=== PATIENT | female | born 2000 | race Caucasian/White ===

== ENCOUNTER 2018-08-04 18:29 | Emergency (ER) | payer OTHER ==
[2018-08-04] MEDS ORDERED: NA CHLORIDE 0.9% 1,000 ML ONE (19:56)
--- NOTE | 2018-08-04 21:11 | ER ---
Nurse's Notes [facility] Name: Amy Andrew Age: 17 yrs Sex: Female : 2000 Arrival Date: 08/04/2018 Time: 18:29 Bed 13 Private MD: Diagnosis: Acute upper respiratory infection, unspecified Presentation: 08/04 18:51 Presenting complaint: Patient states: Cough, congestion, chills, sore throat for 3 aj days. Also reports high blood sugar readings of >600 at home. Transition of care: patient was not received from another setting of care. Onset of symptoms was August 04, 2018. Risk Assessment: Do you want to hurt yourself or someone else? Patient reports no desire to harm self or others. Initial Sepsis Screen: Does the patient meet any 2 criteria? No. Patient's initial sepsis screen is negative. Does the patient have a suspected source of infection? No. Patient's initial sepsis screen is negative. Care prior to arrival: None. 18:51 Method Of Arrival: Ambulatory 18:51 Acuity: UMU 3 aj Triage Assessment: 18:55 General: Appears in no apparent distress. comfortable, Behavior is calm, cooperative, aj appropriate for age. Pain: Denies pain. EENT: Reports nasal congestion nasal discharge. Neuro: Level of Consciousness is awake, alert, obeys commands, Oriented to person, place, time, situation, Appropriate for age. Respiratory: Reports cough that is productive, Airway is patent Respiratory effort is even, unlabored, Respiratory pattern is regular, symmetrical. Derm: Skin is intact, is healthy with good turgor, Skin is pink, warm \\T\\ dry. normal. 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 - Social history:: Smoking status: Patient/guardian denies using tobacco. - Ebola Screening: : Patient negative for fever greater than or equal to 101.5 degrees Fahrenheit, and additional compatible Ebola Virus Disease symptoms Patient denies exposure to infectious person Patient denies travel to an Ebola-affected area in the 21 days before illness onset No symptoms or risks identified at this time. Screenin:06 Abuse screen: Denies threats or abuse. Nutritional screening: No deficits noted. tl2 Tuberculosis screening: No symptoms or risk factors identified. Fall Risk None identified. Assessment: 19:04 General: Appears in no apparent distress. uncomfortable, Behavior is calm, cooperative, tl2 appropriate for age. General: Pt reports having to change insulin pump today, BGL read "high" and pt gave herself total of 11 units today. last dose was 1 hour ago. BGL is decreasing. Pain: Complains of pain in throat. Neuro: Level of Consciousness is awake, alert, obeys commands, Oriented to person, place, time, situation. Cardiovascular: Denies chest pain. Respiratory: Airway is patent Respiratory effort is even, unlabored, Respiratory pattern is regular, symmetrical, Breath sounds are clear bilaterally. Respiratory: Reports cough that is. GI: No signs and/or symptoms were reported involving the gastrointestinal system. : No signs and/or symptoms were reported regarding the genitourinary system. EENT: Reports nasal congestion. EENT: Throat is reddened. Derm: Skin is pink, warm \\T\\ dry. 20:14 Reassessment: Patient appears in no apparent distress at this time. Patient and/or tl2 family updated on plan of care and expected duration. Pain level reassessed. Patient is alert, oriented x 3, equal unlabored respirations, skin warm/dry/pink. 22:04 Reassessment: Patient appears in no apparent distress at this time. Patient and/or tl2 family updated on plan of care and expected duration. Pain level reassessed. Patient is alert, oriented x 3, equal unlabored respirations, skin warm/dry/pink. Pt verbalized understanding of discharge instructions, need for follow up and prescription usage Patient states feeling better. Vital Signs: 18:55 BP 114 / 79; Pulse 79; Resp 20; Temp 98.1; Pulse Ox 100% on R/A; Weight 55.34 kg; aj Height 5 ft. 1 in. (154.94 cm); 19:03 BP 118 / 94; Pulse 81; Resp 18; Pulse Ox 100% on R/A; tl2 22:04 BP 116 / 83; Pulse 63; Resp 18; Pulse Ox 98% on R/A; tl2 18:55 Body Mass Index 23.05 (55.34 kg, 154.94 cm) ED Course: 18:29 Patient arrived in ED. mr 18:53 Triage completed. aj 18:55 Arm band placed on left wrist. Patient placed in an exam room. aj 19:01 Isaiah Brown PA is PHCP. jr8 19:01 Humberto Rudd MD is Attending Physician. jr8 19:03 Cecile Vergara RN is Primary Nurse. tl2 19:06 Patient has correct armband on for positive identification. Bed in low position. Call tl2 light in reach. Side rails up X 1. Adult w/ patient. 19:06 Inserted saline lock: 22 gauge in right antecubital area, using aseptic technique. tl2 Blood collected. placed by artemio Fall. 22:04 No provider procedures requiring assistance completed. IV discontinued, intact, tl2 bleeding controlled, No redness/swelling at site. Pressure dressing applied. Administered Medications: 20:11 Drug: NS 0.9% 1000 ml Route: IV; Rate: 1000 ml; Site: right antecubital; tl2 22:07 Follow up: IV Status: Completed infusion; IV Intake: 1000ml tl2 21:52 Drug: Decadron - Dexamethasone 10 mg Route: IVP; Site: right antecubital; tl2 22:07 Follow up: Response: No adverse reaction; Medication administered at discharge. tl2 Point of Care Testing: Blood Glucose: 19:03 Blood Glucose: 405 mg/dL; tl2 21:09 Blood Glucose: 253 mg/dL; tl2 Ranges: Intake: 22:07 IV: 1000ml; Total: 1000ml. tl2 Outcome: 21:10 Discharge ordered by . jr8 22:04 Discharged to home ambulatory, with family. tl2 22:04 Condition: stable 22:04 Discharge instructions given to patient, family, Instructed on discharge instructions, follow up and referral plans. medication usage, Demonstrated understanding of instructions, follow-up care, medications, Prescriptions given X 1. 22:07 Patient left the ED. tl2 Signatures: Jessica Bone RN RN aj SamDayana mr Isaiah Brown PA PA 8 Vergara, Cecile, RN RN tl2
--- NOTE | 2018-08-04 21:11 | EDPHYS ---
Physician Documentation [facility] Name: Amy Andrew Age: 17 yrs Sex: Female : 2000 Arrival Date: 08/04/2018 Time: 18:29 Bed 13 Private MD: ED Physician Humberto Rudd HPI: 08/04 21:06 This 17 yrs old Female presents to ER via Ambulatory with complaints of jr8 Cough, Congestion, Sore Throat. 21:06 The patient or guardian reports cough, that is intermittent, described as mild, with no jr8 sputum. Onset: The symptoms/episode began/occurred gradually, 2 day(s) ago. Severity of symptoms: At their worst the symptoms were moderate, in the emergency department the symptoms are unchanged. Modifying factors: The symptoms are alleviated by nothing, the symptoms are aggravated by nothing. Associated signs and symptoms: Pertinent positives: sore throat. The patient has not experienced similar symptoms in the past. The patient has not recently seen a physician. 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 - Social history:: Smoking status: Patient/guardian denies using tobacco. - Ebola Screening: : Patient negative for fever greater than or equal to 101.5 degrees Fahrenheit, and additional compatible Ebola Virus Disease symptoms Patient denies exposure to infectious person Patient denies travel to an Ebola-affected area in the 21 days before illness onset No symptoms or risks identified at this time. ROS: 21:06 Eyes: Negative for injury, pain, redness, and discharge, Neck: Negative for injury, jr8 pain, and swelling, Cardiovascular: Negative for chest pain, palpitations, and edema, Abdomen/GI: Negative for abdominal pain, nausea, vomiting, diarrhea, and constipation, Back: Negative for injury and pain, MS/Extremity: Negative for injury and deformity, Skin: Negative for injury, rash, and discoloration, Neuro: Negative for headache, weakness, numbness, tingling, and seizure. 21:06 ENT: Positive for rhinorrhea, sinus congestion, sore throat. 21:06 Respiratory: Positive for cough, Negative for dyspnea on exertion, shortness of breath, sputum production, wheezing. Exam: 21:06 Eyes: Pupils equal round and reactive to light, extra-ocular motions intact. Lids and jr8 lashes normal. Conjunctiva and sclera are non-icteric and not injected. Cornea within normal limits. Periorbital areas with no swelling, redness, or edema. ENT: Nares patent. No nasal discharge, no septal abnormalities noted. Tympanic membranes are normal and external auditory canals are clear. Oropharynx with mild redness. No swelling, or masses, exudates, or evidence of obstruction, uvula midline. Mucous membranes moist. Neck: Trachea midline, no thyromegaly or masses palpated, and no cervical lymphadenopathy. Supple, full range of motion without nuchal rigidity, or vertebral point tenderness. No Meningismus. Respiratory: Lungs have equal breath sounds bilaterally, clear to auscultation and percussion. No rales, rhonchi or wheezes noted. No increased work of breathing, no retractions or nasal flaring. Abdomen/GI: Soft, non-tender, with normal bowel sounds. No distension or tympany. No guarding or rebound. No evidence of tenderness throughout. Back: No spinal tenderness. No costovertebral tenderness. Full range of motion. Skin: Warm, dry with normal turgor. Normal color with no rashes, no lesions, and no evidence of cellulitis. MS/ Extremity: Pulses equal, no cyanosis. Neurovascular intact. Full, normal range of motion. Neuro: Awake and alert, GCS 15, oriented to person, place, time, and situation. Cranial nerves II-XII grossly intact. Motor strength 5/5 in all extremities. Sensory grossly intact. Cerebellar exam normal. Normal gait. Vital Signs: 18:55 BP 114 / 79; Pulse 79; Resp 20; Temp 98.1; Pulse Ox 100% on R/A; Weight 55.34 kg; aj Height 5 ft. 1 in. (154.94 cm); 19:03 BP 118 / 94; Pulse 81; Resp 18; Pulse Ox 100% on R/A; tl2 22:04 BP 116 / 83; Pulse 63; Resp 18; Pulse Ox 98% on R/A; tl2 18:55 Body Mass Index 23.05 (55.34 kg, 154.94 cm) aj MDM: 19:01 Patient medically screened. jr8 21:06 Data reviewed: vital signs, nurses notes, lab test result(s), and as a result, I will jr8 discharge patient. Data interpreted: Pulse oximetry: on room air is 100 %. Interpretation: normal. Counseling: I had a detailed discussion with the patient and/or guardian regarding: the historical points, exam findings, and any diagnostic results supporting the discharge/admit diagnosis, lab results, the need for outpatient follow up, a family practitioner, to return to the emergency department if symptoms worsen or persist or if there are any questions or concerns that arise at home. Response to treatment: the patient's symptoms have markedly improved after treatment, and as a result, I will discharge patient. 08/04 19:16 Order name: Urine Dipstick--Ancillary (enter results); Complete Time: 21:29 ms 08/04 19:36 Order name: Strep; Complete Time: 21:06 jr8 08/04 19:36 Order name: Influenza Screen (a \T\ B); Complete Time: 21:06 jr8 08/04 20:34 Order name: Throat Culture EDIN 08/04 19:36 Order name: Glucose Level; Complete Time: 19:43 jr8 Administered Medications: 20:11 Drug: NS 0.9% 1000 ml Route: IV; Rate: 1000 ml; Site: right antecubital; tl2 22:07 Follow up: IV Status: Completed infusion; IV Intake: 1000ml tl2 21:52 Drug: Decadron - Dexamethasone 10 mg Route: IVP; Site: right antecubital; tl2 22:07 Follow up: Response: No adverse reaction; Medication administered at discharge. tl2 Point of Care Testing: Blood Glucose: 19:03 Blood Glucose: 405 mg/dL; tl2 21:09 Blood Glucose: 253 mg/dL; tl2 Ranges: Critical Glucose Levels:Adult <50 mg/dl or >400 mg/dl <40 mg/dl or >180 mg/dl Disposition: 08/04/18 21:10 Discharged to Home. Impression: Acute upper respiratory infection, unspecified. - Condition is Stable. - Discharge Instructions: Upper Respiratory Infection, Adult. - Prescriptions for Tessalon Perles 100 mg Oral Capsule - take 1 capsule by ORAL route every 8 hours As needed; 15 capsule. - Medication Reconciliation Form, Thank You Letter, Antibiotic Education, Prescription Opioid Use form. - Follow up: Private Physician; When: 2 - 3 days; Reason: Recheck today's complaints, Continuance of care, Re-evaluation by your physician. - Problem is new. - Symptoms have improved. Addendum: 08/06/2018 20:56 Co-signature as Attending Physician, Humberto Rudd MD. r n Signatures: Dispatcher [employer] EDMS Jessica Bone, RN RN Humberto Adkins MD MD rn Roszak, Josh, PA PA jr8 Cecile Vergara RN RN tl2 Corrections: (The following items were deleted from the chart) 08/04 22:07 21:10 08/04/2018 21:10 Discharged to Home. Impression: Acute upper respiratory tl2 infection, unspecified. Condition is Stable. Forms are Medication Reconciliation Form, Thank You Letter, Antibiotic Education, Prescription Opioid Use. Follow up: Private Physician; When: 2 - 3 days; Reason: Recheck today's complaints, Continuance of care, Re-evaluation by your physician. Problem is new. Symptoms have improved. jr8
[2018-08-04 21:16] LABS: Urine Blood NEGATIVE (NEG); Urine Glucose 2+ (NEG); Urine Protein NEGATIVE (NEG); Urine Specific Gravity <1.005 (1.005-1.030)
[2018-08-04] MEDS ORDERED: DEXAMETHASONE 10 MG/ML VIAL ONE (21:21)
== END 2018-08-04 22:07 | disposition home or self-care (01) ==
LOC: ER 18:29
DX: J06.9 Acute upper respiratory infection, unspecified (principal); E03.9 Hypothyroidism, unspecified; E11.9 Type 2 diabetes mellitus without complications; Z79.4 Long term (current) use of insulin
CPT/HCPCS: 81003; 82962; 87070; 87081; 87804; 96361; 96374; 99284; J1100; J7030

== ENCOUNTER 2019-06-10 13:11 | Emergency (ER) | payer BC, OTHER ==
[2019-06-10] MEDS ORDERED: HYDROCODONE/APAP 10/325 TAB ONE (14:34)
[2019-06-10] MEDS ORDERED: HYDROCODONE/APAP 5/325 MG TAB ONE (14:40)
[2019-06-10] MEDS ORDERED: ONDANSETRON 4 MG (ODT) TAB ONE (14:47)
[2019-06-10 15:37] LABS: Urine Blood 3+ (NEG); Urine Glucose NEGATIVE (NEG); Urine Protein NEGATIVE (NEG); Urine Specific Gravity 1.015 (1.005-1.030)
--- NOTE | 2019-06-10 15:37 | ER ---
Nurse's Notes [facility] Name: Amy Andrew Age: 18 yrs Sex: Female : 2000 Arrival Date: 06/10/2019 Time: 13:17 Bed 16 Private MD: Diagnosis: Dysmenorrhea, unspecified Presentation: 06/10 13:39 Presenting complaint: Patient states: " I have bad cramps on my period but they are ph worse than they usually are." Pt reports that today is first day of cycle, c/o kayleigh lower abdominal pain and heavy period, denies N/V/D, took BC powder and tramadol w/ no relief. Transition of care: patient was not received from another setting of care. Onset of symptoms was June 10, 2019. Risk Assessment: Do you want to hurt yourself or someone else? Patient reports no desire to harm self or others. Care prior to arrival: None. 13:39 Method Of Arrival: Ambulatory ph 13:39 Acuity: UMU 3 ph 14:15 Initial Sepsis Screen: Does the patient meet any 2 criteria? No. Patient's initial rb1 sepsis screen is negative. Does the patient have a suspected source of infection? No. Patient's initial sepsis screen is negative. 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 - Social history:: Smoking status: Patient uses tobacco products, Vapes. - Ebola Screening: : Patient negative for fever greater than or equal to 101.5 degrees Fahrenheit, and additional compatible Ebola Virus Disease symptoms. Screenin:15 Abuse screen: Denies threats or abuse. Nutritional screening: No deficits noted. rb1 Tuberculosis screening: No symptoms or risk factors identified. Fall Risk None identified. Assessment: 14:15 General: Appears uncomfortable, Behavior is calm, cooperative, Denies fever. Pain: rb1 Complains of pain in abdomen Pain currently is 10 out of 10 on a pain scale. Pain began 2-3 days ago. Neuro: Level of Consciousness is awake, alert, obeys commands, Oriented to person, place, time, situation. Neuro: Reports dizziness. Cardiovascular: Capillary refill < 3 seconds is brisk in bilateral fingers. Respiratory: Airway is patent Respiratory effort is even, unlabored, Respiratory pattern is regular, symmetrical. GI: Bowel sounds present X 4 quads. Reports nausea. GI: Abd is soft X 4 quads. : No signs and/or symptoms were reported regarding the genitourinary system. Derm: Skin is pink, warm \\T\\ dry. Musculoskeletal: Range of motion: intact in all extremities. 15:09 Reassessment: Patient appears in no apparent distress at this time. No changes from rb1 previously documented assessment. 15:25 Reassessment: Patient appears in no apparent distress at this time. Patient and/or rb1 family updated on plan of care and expected duration. Pain level reassessed. Patient is alert, oriented x 3, equal unlabored respirations, skin warm/dry/pink. 16:00 Reassessment: Patient appears in no apparent distress at this time. No changes from rb1 previously documented assessment. Vital Signs: 13:28 BP 104 / 83; Pulse 72; Resp 18; Temp 98.2; Pulse Ox 100% on R/A; Weight 52.16 kg; ph Height 5 ft. 1 in. (154.94 cm); Pain 10/10; 14:25 BP 110 / 78; Pulse 58; Resp 17; Temp 98.1(O); Pulse Ox 100% on R/A; Pain 10/10; rb1 15:25 BP 99 / 74; Pulse 60; Resp 15; Temp 98.3(O); Pulse Ox 98% on R/A; Pain 5/10; rb1 13:28 Body Mass Index 21.73 (52.16 kg, 154.94 cm) ph ED Course: 13:17 Patient arrived in ED. mr 13:33 Wendy Draper FNP-C [facility]. kb 13:33 Yousuf Fournier MD is Attending Physician. kb 13:41 Triage completed. ph 13:41 Arm band placed on Patient placed in waiting room, Patient notified of wait time. ph 14:15 Patient has correct armband on for positive identification. Placed in gown. Bed in low rb1 position. Call light in reach. Side rails up X 1. Pulse ox on. NIBP on. Warm blanket given. 14:24 Jacquie Dempsey, RN is Primary Nurse. rb1 14:33 Urine collected: clean catch specimen, clear. ms 16:02 No provider procedures requiring assistance completed. Patient did not have IV access rb1 during this emergency room visit. 16:04 US Transvaginal Study (Probe) In Process Unspecified. EDMS Administered Medications: 14:45 Drug: Yuma 5 mg-325 mg 1 tabs Route: PO; rb1 15:25 Follow up: Response: No adverse reaction; Pain is decreased rb1 14:50 Not Given (Provider changed order per pt. request): Yuma 10 mg-325 mg 1 tabs PO once; rb1 RASS on ADMIN: Combtv4, Very Agttd3, Agttd2, Rstlss1, AlertClm0, Drwsy-1, Lt Sdtn-2, Mod Sdtn-3, Dp Sdtn-4, UnArsble-5 14:50 Drug: Zofran 4 mg Route: PO; rb1 15:25 Follow up: Response: No adverse reaction; Nausea is decreased rb1 Outcome: 15:35 Discharge ordered by . kb 16:02 Discharged to home ambulatory, with family. rb1 16:02 Condition: stable 16:02 Discharge instructions given to patient, Instructed on discharge instructions, follow up and referral plans. medication usage, Demonstrated understanding of instructions, follow-up care, medications, Prescriptions given X 2. 16:02 Patient left the ED. rb1 Signatures: Dispatcher [employer] EDMS Wendy Draper, ROXANE SAFETY PROFESSIONAL-Ted VargasDayana mr Sears, Dolly Angel ms, RN RN Jacquie Dempsey, RN RN rb1 Corrections: (The following items were deleted from the chart) 16:41 16:40 Patient left the ED. rb1 rb1
--- NOTE | 2019-06-10 15:37 | EDPHYS ---
Physician Documentation [facility] Name: Amy Andrew Age: 18 yrs Sex: Female : 2000 Arrival Date: 06/10/2019 Time: 13:17 Bed 16 Private MD: ED Physician Yousuf Fournier HPI: 06/10 14:58 This 18 yrs old Female presents to ER via Ambulatory with complaints of kb Abdominal Pain, Nausea. 14:58 The patient presents with abdominal pain in the lower abdomen. Onset: The kb symptoms/episode began/occurred 2 day(s) ago. The symptoms do not radiate. Associated signs and symptoms: Pertinent positives: vaginal bleeding. The symptoms are described as constant, crampy. Modifying factors: The symptoms are alleviated by nothing, the symptoms are aggravated by nothing. Severity of pain: At its worst the pain was moderate in the emergency department the pain is unchanged. The patient has experienced similar episodes in the past. The patient has not recently seen a physician. Pt reports she started getting cramps 2 days ago and started her period today. States the cramps/pain have become untolerable today. 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 - Social history:: Smoking status: Patient uses tobacco products, Vapes. - Ebola Screening: : Patient negative for fever greater than or equal to 101.5 degrees Fahrenheit, and additional compatible Ebola Virus Disease symptoms. ROS: 14:55 Constitutional: Negative for fever, chills, and weight loss, ENT: Negative for injury, kb pain, and discharge, Neck: Negative for injury, pain, and swelling, Cardiovascular: Negative for chest pain, palpitations, and edema, Respiratory: Negative for shortness of breath, cough, wheezing, and pleuritic chest pain, Back: Negative for injury and pain, MS/Extremity: Negative for injury and deformity, Skin: Negative for injury, rash, and discoloration, Neuro: Negative for headache, weakness, numbness, tingling, and seizure. 14:55 Abdomen/GI: Positive for abdominal pain, Negative for nausea, vomiting, and diarrhea, constipation, abdominal distension, anorexia. 14:55 : Positive for vaginal bleeding. Exam: 14:57 Constitutional: This is a well developed, well nourished patient who is awake, alert, kb and in no acute distress. Head/Face: Normocephalic, atraumatic. Neck: Trachea midline, no thyromegaly or masses palpated, and no cervical lymphadenopathy. Supple, full range of motion without nuchal rigidity, or vertebral point tenderness. No Meningismus. Chest/axilla: Normal chest wall appearance and motion. Nontender with no deformity. No lesions are appreciated. Cardiovascular: Regular rate and rhythm with a normal S1 and S2. No gallops, murmurs, or rubs. Normal PMI, no JVD. No pulse deficits. Respiratory: Lungs have equal breath sounds bilaterally, clear to auscultation and percussion. No rales, rhonchi or wheezes noted. No increased work of breathing, no retractions or nasal flaring. Abdomen/GI: Soft, non-tender, with normal bowel sounds. No distension or tympany. No guarding or rebound. No evidence of tenderness throughout. Skin: Warm, dry with normal turgor. Normal color with no rashes, no lesions, and no evidence of cellulitis. MS/ Extremity: Pulses equal, no cyanosis. Neurovascular intact. Full, normal range of motion. Neuro: Awake and alert, GCS 15, oriented to person, place, time, and situation. Cranial nerves II-XII grossly intact. Motor strength 5/5 in all extremities. Sensory grossly intact. Cerebellar exam normal. Normal gait. Vital Signs: 13:28 BP 104 / 83; Pulse 72; Resp 18; Temp 98.2; Pulse Ox 100% on R/A; Weight 52.16 kg; ph Height 5 ft. 1 in. (154.94 cm); Pain 10/10; 14:25 BP 110 / 78; Pulse 58; Resp 17; Temp 98.1(O); Pulse Ox 100% on R/A; Pain 10/10; rb1 15:25 BP 99 / 74; Pulse 60; Resp 15; Temp 98.3(O); Pulse Ox 98% on R/A; Pain 5/10; rb1 13:28 Body Mass Index 21.73 (52.16 kg, 154.94 cm) ph MDM: 14:14 Patient medically screened. kb 14:56 Data reviewed: vital signs, nurses notes. Data interpreted: Pulse oximetry: on room air kb is 100 %. Interpretation: normal. Counseling: I had a detailed discussion with the patient and/or guardian regarding: the historical points, exam findings, and any diagnostic results supporting the discharge/admit diagnosis, lab results, radiology results, the need for outpatient follow up, a family practitioner, to return to the emergency department if symptoms worsen or persist or if there are any questions or concerns that arise at home. 06/10 15:34 Order name: Urine Dipstick--Ancillary (enter results) 06/10 15:34 Order name: Urine --Ancillary (enter results) 06/10 14:30 Order name: US Transvaginal Study (Probe); Complete Time: 16:21 kb 06/10 15:37 Order name: Urine --Ancillary [facility] 06/10 15:37 Order name: Urine Dipstick-Ancillary [facility] 06/10 14:16 Order name: Urine Dipstick-Ancillary (obtain specimen); Complete Time: 14:33 kb Administered Medications: 14:45 Drug: Elwell 5 mg-325 mg 1 tabs Route: PO; rb1 15:25 Follow up: Response: No adverse reaction; Pain is decreased rb1 14:50 Not Given (Provider changed order per pt. request): Elwell 10 mg-325 mg 1 tabs PO once; rb1 RASS on ADMIN: Combtv4, Very Agttd3, Agttd2, Rstlss1, AlertClm0, Drwsy-1, Lt Sdtn-2, Mod Sdtn-3, Dp Sdtn-4, UnArsble-5 14:50 Drug: Zofran 4 mg Route: PO; rb1 15:25 Follow up: Response: No adverse reaction; Nausea is decreased rb1 Disposition: 16:43 Co-signature as Attending Physician, Yousuf Fournier MD I agree with the assessment and salvador plan of care. Disposition: 06/10/19 15:35 Discharged to Home. Impression: Dysmenorrhea, unspecified. - Condition is Stable. - Discharge Instructions: Dysmenorrhea, [id number]. - Prescriptions for Tylenol- Codeine #3 300-30 mg Oral Tablet - take 1 tablet by ORAL route every 6 hours As needed; 15 tablet. Zofran 4 mg Oral Tablet - take 1 tablet by ORAL route every 6 hours As needed; 20 tablet. - Medication Reconciliation Form, Thank You Letter, Antibiotic Education, Prescription Opioid Use, Work release form form. - Follow up: Emergency Department; When: As needed; Reason: Worsening of condition. Follow up: Private Physician; When: 2 - 3 days; Reason: Recheck today's complaints, Continuance of care, Re-evaluation by your physician. Signatures: Dispatcher [employer] EDMS Wendy Draper, MANAGER ADMINISTRATION-C MANAGER ADMINISTRATION-Yousuf Rodriguez MD MD cha Hall, Patricia, RN RN Jacquie Bartholomew RN RN rb1 Corrections: (The following items were deleted from the chart) 16:40 15:35 06/10/2019 15:35 Discharged to Home. Impression: Dysmenorrhea, unspecified. rb1 Condition is Stable. Forms are Medication Reconciliation Form, Thank You Letter, Antibiotic Education, Prescription Opioid Use. Follow up: Emergency Department; When: As needed; Reason: Worsening of condition. Follow up: Private Physician; When: 2 - 3 days; Reason: Recheck today's complaints, Continuance of care, Re-evaluation by your physician. kb
--- NOTE | 2019-06-10 16:12 | RAD REPORT ---
EXAM DESCRIPTION: US - Transvaginal Study Probe - 06/10/2019 4:00 pm CLINICAL HISTORY: Pelvic pain COMPARISON: None. TECHNIQUE: Endovaginal sonography was performed. FINDINGS: Endometrial stripe is 9 mm. No focal endometrial abnormality identified. Uterus is normal size measuring 7.7 x 3.0 x 3.8 cm. No myometrial mass. Free fluid is present in the cul de sac. Both ovaries are identified and normal size. Doppler evaluation shows normal blood flow within the ov maira stroma. Small follicles are seen in each ovary. No dominant solid or cystic ovarian or adnexal finding. IMPRESSION: No significant pelvis finding noted. Free fluid in the cul de sac is not outside of norm al physiologic limits for patient age.
== END 2019-06-10 16:40 | disposition home or self-care (01) ==
LOC: ER 13:11
DX: N94.6 Dysmenorrhea, unspecified (principal); E11.9 Type 2 diabetes mellitus without complications; Z96.41 Presence of insulin pump (external) (internal); Z79.4 Long term (current) use of insulin; E03.9 Hypothyroidism, unspecified; F17.290 Nicotine dependence, other tobacco product, uncomplicated
CPT/HCPCS: 76830; 81003; 81025; 99284

== ENCOUNTER 2020-05-13 06:42 | Emergency (ER) | payer BC ==
[2020-05-13 07:33] LABS: Absolute Lymphocytes (CBC) 1.6 K/uL (0.7-4.9); Basophils % 0.9 % (0-1.3); Hematocrit 40.1 % (36.0-45.0); Lymphocytes % 42.8 % (15.3-44.8); MPV 8.7 fL (7.6-11.3); RBC Red Blood Cell Count 4.62 M/uL (3.86-4.86)
[2020-05-13 07:38] LABS: Potassium 3.8 mmol/L (3.5-5.1)
[2020-05-13] MEDS ORDERED: NA CHLORIDE 0.9% 1,000 ML ONE (08:03)
[2020-05-13 08:21] LABS: Blood Morphology Comment NOT SEEN (NOT SEEN); Platelet Estimate ADEQ
[2020-05-13] MEDS ORDERED: ACETAMINOPHEN 500 MG TAB ONE (08:30)
--- NOTE | 2020-05-13 09:52 | ER ---
Nurse's Notes [facility] Name: Amy Andrew Age: 19 yrs Sex: Female : 2000 Arrival Date: 05/13/2020 Time: 06:43 Bed 6 Private MD: Diagnosis: Abnormal uterine and vaginal bleeding, unspecified Presentation: 05/13 06:52 Chief complaint: EMS states: "The pt is reporting heavy bleeding and that started today jd3 with her minstrel cycle. she reported spotting that started yesterday, but today she is reporting to be soaking through a pad an hour. the pt was initially light headed, dizzy, diaphoretic. she also reports being a type 1 diabetic, but her sugars have been good. we gave 4 mg of Zofran and started a 20 G IV to the left AC.". Coronavirus screen: Proceed with normal triage. Ebola Screen: Patient negative for fever greater than or equal to 101.5 degrees Fahrenheit, and additional compatible Ebola Virus Disease symptoms. Initial Sepsis Screen: Does the patient meet any 2 criteria? No. Patient's initial sepsis screen is negative. Does the patient have a suspected source of infection? No. Patient's initial sepsis screen is negative. Risk Assessment: Do you want to hurt yourself or someone else? Patient reports no desire to harm self or others. Onset of symptoms was May 13, 2020. 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 - Social history:: Smoking status: Patient denies any tobacco usage or history of. Screenin:41 Abuse screen: Denies threats or abuse. Denies injuries from another. Nutritional iw screening: No deficits noted. Tuberculosis screening: No symptoms or risk factors identified. Fall Risk IV access (20 points). Assessment: 07:40 General: Appears in no apparent distress. Behavior is calm, cooperative. Pain: iw Complains of pain in right lower quadrant and left lower quadrant Pain currently is 4 out of 10 on a pain scale. Neuro: Level of Consciousness is awake, alert, obeys commands, Oriented to person, place, time, situation, Moves all extremities. Full function. Cardiovascular: Patient's skin is warm and dry. Respiratory: Respiratory effort is even, unlabored, Respiratory pattern is regular, symmetrical. GI: Reports lower abdominal pain. : Reports vaginal bleeding that is heavy flow. Derm: Skin is intact, is healthy with good turgor. Musculoskeletal: Range of motion: intact in all extremities. 09:59 Reassessment: Patient appears in no apparent distress at this time. Patient and/or iw family updated on plan of care and expected duration. Pain level reassessed. Patient is alert, oriented x 3, equal unlabored respirations, skin warm/dry/pink. Patient states feeling better. Patient states symptoms have improved. Vital Signs: 06:57 BP 104 / 69; Pulse 68; Resp 17 S; Temp 98.0(O); Pulse Ox 99% on R/A; Weight 52.16 kg jd3 (R); Height 5 ft. 1 in. (154.94 cm) (R); Pain 5/10; 07:30 BP 106 / 68 RA Supine; Pulse 57; iw 07:34 BP 100 / 72 Sitting; Pulse 69; iw 07:40 BP 101 / 71 Standing; Pulse 83; iw 08:30 BP 103 / 68; Pulse 63; Resp 16; Pulse Ox 98% ; sv 09:25 BP 100 / 65; Pulse 64; Resp 16; Pulse Ox 98% ; sv 06:57 Body Mass Index 21.73 (52.16 kg, 154.94 cm) jd3 ED Course: 06:43 Patient arrived in ED. ds1 06:44 Maintain EMS IV. Dressing intact. Good blood return noted. Site clean \\T\\ dry. Gauge \\T\\ mg 2 site: 20 \\T\\ LAC. 06:53 Benji Coyne NP is PHCP. pm1 06:53 Anuel An MD is Attending Physician. pm1 06:56 Triage completed. jd3 06:58 Arm band placed on. jd3 07:07 CBC with Diff Sent. ds4 07:07 Basic Metabolic Panel Sent. ds4 07:07 Abo/rh Typing Sent. ds4 07:12 Christianne Mckeon, RN is Primary Nurse. iw 07:40 Patient has correct armband on for positive identification. iw 09:59 No provider procedures requiring assistance completed. IV discontinued, intact, iw bleeding controlled, No redness/swelling at site. Pressure dressing applied. Administered Medications: 08:21 Drug: NS 0.9% 1000 ml Route: IV; Rate: 1000 ml; Site: left antecubital; iw 08:27 Drug: Tylenol 1000 mg Route: PO; iw Outcome: 09:52 Discharge ordered by MD. pm1 10:05 Discharged to home ambulatory. iw 10:05 Condition: good 10:05 Discharge instructions given to patient, Instructed on discharge instructions, follow up and referral plans. medication usage, Demonstrated understanding of instructions, follow-up care, medications, Prescriptions given X 1. 10:06 Patient left the ED. iw Signatures: Ivone Hines, RN RN Sherine Figueroa ds1 Christianne Mckeon, RN RN iw Adal Che ds4 Benji Coyne, EULALIO MARINE DIVER pm1 Cuong Forman RN RN jd3 Corbin Kat RN RN mg2
--- NOTE | 2020-05-13 09:52 | EDPHYS ---
Physician Documentation [facility] Name: Amy Andrew Age: 19 yrs Sex: Female : 2000 Arrival Date: 05/13/2020 Time: 06:43 Bed 6 Private MD: ED Physician Anuel An HPI: 05/13 06:45 This 19 yrs old Female presents to ER via EMS with complaints of Vaginal pm1 Bleeding. 06:45 The patient presents with vaginal bleeding that is heavy. Onset: The symptoms/episode pm1 began/occurred this morning. Modifying factors:. Associated signs and symptoms: Pertinent positives: cramping, nausea, dizziness, Pertinent negatives: dysuria, fever, vomiting, Syncope. Severity of symptoms: in the emergency department the symptoms have improved. 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 Patient with history of heavy monthly menses. Usually lasts 3 days. Patient presented to the ER today because she started her menses yesterday with some spotting then she woke up this AM with vaginal bleeding in bed. She got up to clean herself and felt dizzy, nauseated and was sweating. Blood sugar was in the 200's at home. 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 - Social history:: Smoking status: Patient denies any tobacco usage or history of. ROS: 07:01 Positive for vaginal bleeding, Negative for urinary symptoms, vaginal discharge. pm1 07:01 Constitutional: Negative for fever, chills, and weight loss, Cardiovascular: Negative for chest pain, palpitations, and edema, Respiratory: Negative for shortness of breath, cough, wheezing, and pleuritic chest pain. 07:01 Back: Negative for injury and pain, MS/Extremity: Negative for injury and deformity, Skin: Negative for injury, rash, and discoloration. 07:01 Abdomen/GI: Positive for abdominal cramps, of the suprapubic area, Negative for nausea, vomiting, and diarrhea. 07:01 Neuro: Positive for headache, Negative for numbness, tingling, weakness. Exam: 07:01 Constitutional: This is a well developed, well nourished patient who is awake, alert, pm1 and in no acute distress. Head/Face: Normocephalic, atraumatic. 07:01 Back: No spinal tenderness. No costovertebral tenderness. Full range of motion. Skin: Warm, dry with normal turgor. Normal color with no rashes, no lesions, and no evidence of cellulitis. MS/ Extremity: Pulses equal, no cyanosis. Neurovascular intact. Full, normal range of motion. 07:01 Cardiovascular: Exam negative for acute changes, Rate: normal, Rhythm: regular, Pulses: no pulse deficits are appreciated. 07:01 Respiratory: Exam negative for acute changes, respiratory distress, shortness of breath. 07:01 Abdomen/GI: Inspection: abdomen appears normal, Palpation: abdomen is soft and non-tender, in all quadrants. 07:01 Neuro: Exam negative for acute changes, Orientation: is normal, Mentation: is normal, Motor: is normal, moves all fours. Vital Signs: 06:57 BP 104 / 69; Pulse 68; Resp 17 S; Temp 98.0(O); Pulse Ox 99% on R/A; Weight 52.16 kg jd3 (R); Height 5 ft. 1 in. (154.94 cm) (R); Pain 5/10; 07:30 BP 106 / 68 RA Supine; Pulse 57; iw 07:34 BP 100 / 72 Sitting; Pulse 69; iw 07:40 BP 101 / 71 Standing; Pulse 83; iw 08:30 BP 103 / 68; Pulse 63; Resp 16; Pulse Ox 98% ; sv 09:25 BP 100 / 65; Pulse 64; Resp 16; Pulse Ox 98% ; sv 06:57 Body Mass Index 21.73 (52.16 kg, 154.94 cm) jd3 MDM: 06:53 Patient medically screened. pm1 08:28 Counseling: I had a detailed discussion with the patient and/or guardian regarding: the pm1 historical points, exam findings, and any diagnostic results supporting the discharge/admit diagnosis, lab results, pending urine sample. 09:28 Data reviewed: vital signs. Data interpreted: Pulse oximetry: on room air is 98 %. pm1 Interpretation: normal. 05/13 06:44 Order name: Abo/rh Typing; Complete Time: 07:52 mg2 05/13 06:44 Order name: Basic Metabolic Panel; Complete Time: 07:52 mg2 05/13 06:44 Order name: CBC with Diff; Complete Time: 08:28 mg2 05/13 08:21 Order name: Manual Differential; Complete Time: 08:28 EDNJ 05/13 09:54 Order name: Urine Dipstick--Ancillary (enter results) pr 05/13 09:54 Order name: Urine --Ancillary (enter results) pr 05/13 06:44 Order name: IV Saline Lock; Complete Time: 06:45 mg2 05/13 06:44 Order name: Labs collected and sent; Complete Time: 06:45 mg2 05/13 06:44 Order name: NPO; Complete Time: 06:45 mg2 05/13 06:44 Order name: Urine Dipstick-Ancillary (obtain specimen); Complete Time: 09:51 [facility] 05/13 06:53 Order name: Urine Test (obtain specimen); Complete Time: 07:42 pm1 05/13 06:58 Order name: Orthostatic Blood Pressure; Complete Time: 07:42 pm1 Administered Medications: 08:21 Drug: NS 0.9% 1000 ml Route: IV; Rate: 1000 ml; Site: left antecubital; 08:27 Drug: Tylenol 1000 mg Route: PO; Disposition: 05/13/20 09:52 Discharged to Home. Impression: Abnormal uterine and vaginal bleeding, unspecified. - Condition is Stable. - Discharge Instructions: Abnormal Uterine Bleeding. - Medication Reconciliation Form, Thank You Letter, Antibiotic Education, Prescription Opioid Use form. - Follow up: Emergency Department; When: As needed; Reason: Worsening of condition. Follow up: Private Physician; When: 2 - 3 days; Reason: Recheck today's complaints, Continuance of care, Re-evaluation by your physician. - Problem is new. - Symptoms have improved. Signatures: Dispatcher [employer] Christianne Holder RN RN iw Marinas, Patrick, NP STREET PHOTOGRAPHER pm1 Cuong Forman RN RN jd3 Gardose, Michele, RN RN mg2 Corrections: (The following items were deleted from the chart) 10:06 09:52 05/13/2020 09:52 Discharged to Home. Impression: Abnormal uterine and vaginal iw bleeding, unspecified. Condition is Stable. Discharge Instructions: Abnormal Uterine Bleeding. Forms are Medication Reconciliation Form, Thank You Letter, Antibiotic Education, Prescription Opioid Use. Follow up: Emergency Department; When: As needed; Reason: Worsening of condition. Follow up: Private Physician; When: 2 - 3 days; Reason: Recheck today's complaints, Continuance of care, Re-evaluation by your physician. Problem is new. Symptoms have improved. pm1 16:49 07:01 Positive for vaginal bleeding, vaginal discharge, Negative for urinary pm1 symptoms, pm1
[2020-05-13 10:13] VITALS: TEMP 98
[2020-05-13 10:17] VITALS: O2SAT 98
[2020-05-13 10:19] VITALS: BP 100/65
[2020-05-13 10:50] LABS: Urine Blood 2+ (NEG); Urine Glucose NEGATIVE (NEG); Urine Protein NEGATIVE (NEG); Urine pH 6.5 (5.0-7.0)
== END 2020-05-13 10:06 | disposition home or self-care (01) ==
LOC: ER 06:42
DX: N93.9 Abnormal uterine and vaginal bleeding, unspecified (principal); E11.9 Type 2 diabetes mellitus without complications; E03.9 Hypothyroidism, unspecified; Z96.41 Presence of insulin pump (external) (internal); Z79.4 Long term (current) use of insulin
CPT/HCPCS: 85025; 80048; 36415; 86900; 81025; 86901; 81003; J7030; 99284

== ENCOUNTER 2022-03-25 22:46 | Emergency (ER) | payer BC ==
--- OUTSIDE RECORDS SUMMARY | 2022-03-25 22:50 | XMS REPORT | Continuity of Care Document ---
:2000 Author Organization [facility] t Address [address] [place] [address] Care Team Providers Name Role Phone Pcp Primary Care Physician Unavailable MARCEL BAHENA Attending Clinician Unavailable Josef CROSS, Marcel Attending Clinician EMILIANA Attending Clinician Unavailable Emiliana CROSS Attending Clinician Alan SUERO Attending Clinician Unavailable Therapy, Covid Infusion Attending Clinician Unavailable Pio CROSS, Alan Attending Clinician Doctor Unassigned, Name Attending Clinician Unavailable Naveen CROSS Attending Clinician Payers Payer Name Policy Type Policy Number Effective Date Expiration Date S ource PPO/EPO - BCBS [id number] BCBS PPO POS EPO [id number] 2018 00:00:00 CHOICE Problems Condition Condition Condition Status Onset Resolution Last Treating Co mments Source Name Details Category Date Date Treatment Clinician Date Tension Tension Disease Active Univers type type 07-10 ity of headache headache 00:00: [place] 00 [facility] Branch Allergic Allergic Disease Active Unive rs rhinitis rhinitis 07-10 ity of 00:00: [place] 00 [facility] Branch Type 1 Type 1 Disease Active Overview: Univer s diabetes diabetes 07-04 Formattin ity of mellitus mellitus 00:00: g of this Nader as 00 note Medical might be Branch different from the original. Diagnosed at age 1.5 years. Has insulin pump. Followed by [facility] Endocrino logy - Dr. Suero Functional Functional Disease Active Overview : Univers constipati constipati 07-04 Formattin ity of on on 00:00: g of this note Medical might be Branch different from the original. Chronic history in past, takes Metamucil regularly to control Hypothyroi Hypothyroi Disease Active Overview : Univers dism dism 07-04 Formattin ity of (acquired) (acquired) 00:00: g of this note Medical might be Branch different from the original. Takes Levothyro teresita, followed by Dr. Suero [facility] Endocrine Dysmenorrh Dysmenorrh Disease Active 2011-10 U gissel lynch ea 10-23 ity of 00:00: [place] [facility] Lymphocyti Lymphocyti Disease Active U gissel grubbs 06-28 [place]y of thyroid[place] thyroiditi [place] No known No known Disease [facility] active [facility] problems problems of Medicin e Allergies, Adverse Reactions, Alerts Allergy Allergy Status Severity Reaction(s) Onset Inactive Treating Comm ents Source Name Type Date Date Clinician GRASS DRUG Active Rash Univers POLLEN INGREDI 07-10 ity of 00:00: [place] [facility] SULFACET DRUG Active Dizziness Unive rs AMIDE INGREDI 07-10 ity of SODIUM 00:00: Medical Branch Sulfacet Propensi Active Nausea Univer s amide ty to and/or 07-10 ity of Sodium adverse Vomiting 00:00: [place] reaction Medical s Branch TRAMADOL DRUG Active Dizziness Unive rs INGREDI 07-10 ity of 00:00: [place] [facility] Tramadol Propensi Active Nausea Univer s ty to and/or 07-10 ity of adverse Vomiting 00:00: [place] reaction Medical s Branch Grass Propensi Active Rash Univers Pollen ty to 07-10 ity of adverse 00:00: [place] reaction Medical s Branch Iodine Propensi Active Rash Other Univers ty to 07-04 reaction( ity of adverse 00:00: s): [place] reaction 00 Other: Medical s See Branch Comments eadache with iodine contrast for MRIHad a reaction when given for imaging study in the past. IODINE DRUG Active Rash Univers INGREDI 07-04 ity of 00:00: [place] [facility] NO KNOWN Allergy Active [facility] Social History Social Habit Start Date Stop Date Quantity Comments Source History SDOH [facility] Alcohol Std Drinks Medica l Center History SDOH [facility] Alcohol Binge Medical Roxi ter History SDOH [facility] Alcohol Comment Medical C enter Exposure to Not sure [facility] SARS-CoV-2 (event) Medica l Center Tobacco use and 2021-11-17 2021-11-[address] [facility] exposure 00:00:00 00:00:00 [facility] Alcohol intake 2021-11-17 2021-11-[address] [facility] 00:00:00 00:00:00 non-drinker Medical Cente r (finding) History SDOH 2021-11-17 2021-11-[address] [facility] Alcohol Frequency 00:00:00 00:00:00 [facility] Sex Assigned At [address] [facility] 00:00:00 00:00:00 [facility] Smoking Status Start Date Stop Date Source Never smoked tobacco [facility] ege of Medicine Medications Ordered Filled Start Stop Current Ordering Indication Dosage Frequency Signature Comments Components Source Medication Medication Date Date Medication? Clinician (SIG) Name Name spironolact Yes 50mg Take 50 mg [facility] one 4-11 by mouth [facility] (ALDACTONE) 11:00: daily. of 50 MG 48 Medicin tablet e spironolact Yes 50mg Take 50 mg [facility] one 2-28 by mouth [facility] (ALDACTONE) 11:30: daily. of 50 MG 30 Medicin tablet e levothyroxi Yes 125ug Take 1 [place] don[place] ne 2-22 Tablet by [facility] (SYNTHROID) 00:00: mouth of 125 MCG 00 daily. Medicin tablet e Continuous Yes Change [facility] Gluc 2-22 every 2 Colleg e Sensor 00:00: weeks of (FREESTYLE 00 Medicin NOAH 2 e SENSOR) MISC levothyroxi Yes 125ug Take 1 [place] donan ne 2-22 Tablet by [facility] (SYNTHROID) 00:00: mouth of 125 MCG 00 daily. Medicin tablet e Continuous Yes Change [facility] Blood Gluc 2-22 every 2 Colleg e Sensor 00:00: weeks of (FREESTYLE 00 Medicin NOAH 2 e SENSOR) [facility] insulin Yes Inject [facility] aspart -31 [facility] U-100 10:49: usly 3 Medical (NovoLOG) 18 (three) Center 100 unit/mL times injection daily before meals. levothyroxi Yes 137ug Take [address] ne 1-31 mcg by [facility] (SYNTHROID, 10:49: mouth Medic al LEVOTHROID) 18 Every Center 137 MCG morning on tablet an empty stomach. spironolact Yes 50mg Take 50 mg [facility] one 11-17 by mouth [facility] (ALDACTONE) 09:20: daily. of 50 MG 52 Medicin tablet e doxycycline 2021- No 50mg Take 50 mg [facility] (VIBRAMYCIN 11-17 by mouth Col lege ) 50 MG 09:20: 00:00 daily. of capsule 33 :00 Medicin e ondansetron 2021- No 4mg Take [address] (ZOFRAN) 4 11-17 0207 tablet (4 Jenifer es MG tablet 00:00: 23:59 mg total) Me dical 00 :00 by mouth Center every 6 (six) hours for 7 days. levothyroxi Yes TAKE 1 [facility] ne 1-21 TABLET BY [facility] (SYNTHROID) 00:00: MOUTH of 137 MCG 00 EVERY DAY Medicin tablet e doxycycline 2020-10 Yes 50mg Take 50 mg [facility] (VIBRAMYCIN 10-25 by mouth Milagro ege ) 50 MG 11:13: daily. of capsule 34 Medicin e insulin 2020-10 Yes [id number] Inject [facility] aspart 10-25 [facility] (NOVOLOG) 00:00: usly a MAX of 100 UNIT/ML 00 dose of 45 Me dicin injection units a e day via insulin pump. 90 day supply Insulin 2020-10 Yes [id number] Inject [facility] Glargine 10-25 [facility] (BASAGLAR 00:00: usly a MAX of KWIKPEN) 00 dose of 16 Medic in 100 UNIT/ML units a e SOPN day in case of pump failure. Insulin Pen 2020-10 Yes [id number] Use with [facility] Needle (BD 10-25 insulin Colleg e PEN NEEDLE 00:00: pen at of [place] U/F) 00 least five Medi jorge 32G X 4 MM times a e MISC day in case of pump failure. Acetone, 2020-10 Yes [id number] check [facility] Urine, Test 10-25 urine College STRP 00:00: ketones if of 00 BG >300 Medicin mg/dL or e during illness BAQSIMI TWO 2020-10 Yes [id number] 1{each} 1 Each by [facility] PACK 3 10-25 Nasal College MG/DOSE 00:00: route as of needed Medicin (for e severe hypoglycem ia). Glucose 2020-10 Yes [id number] Check Ba or Blood 10-25 blood [facility] Strips 00:00: sugars 6 of (CONTOUR 00 times a Medicin NEXT TEST) day. 90 e day supply. Dx Code: E 10.65 ONE TOUCH 2020-10 Yes [id number] Check BG 6 [facility] ULTRASOFT 10-25 times a [facility] LANCETS 00:00: day. 90 of MISC 00 day Medicin supply. e insulin 2020-10 Yes [id number] Inject [facility] aspart 10-25 [facility] (NOVOLOG) 00:00: usly a MAX of 100 UNIT/ML 00 dose of 45 Me dicin injection units a e day via insulin pump. 90 day supply Insulin 2020-10 Yes [id number] Inject [facility] Glargine 10-25 [facility] ge (BASAGLAR 00:00: usly a MAX of KWIKPEN) 00 dose of 16 Medic in 100 UNIT/ML units a e SOPN day in case of pump failure. Insulin Pen 2020-10 Yes [id number] Use with [facility] Needle (BD 10-25 insulin Colleg e PEN NEEDLE 00:00: pen at of [place] U/F) 00 least five Medi jorge 32G X 4 MM times a e MISC day in case of pump failure. Acetone, 2020-10 Yes [id number] check [facility] Urine, Test 10-25 urine [facility] STRP 00:00: ketones if of 00 BG >300 Medicin mg/dL or e during illness BAQSIMI TWO 2020-10 Yes [id number] 1{each} 1 Each by [facility] PACK 3 10-25 Nasal College MG/DOSE 00:00: route as of POW needed Medicin (for e severe hypoglycem ia). Glucose 2020-10 Yes [id number] Check [facility] Blood 10-25 blood College Strips 00:00: sugars 6 of (CONTOUR 00 times a Medicin NEXT TEST) day. 90 e day supply. Dx Code: E 1065 ONE TOUCH 2020-10 Yes [id number] Check BG 6 [facility] ULTRASOFT 10-25 91 times a [facility] LANCETS 00:00: day. of MISC day Medicin supply. e insulin 2020-10 Yes [id number] [facility]: usly a MAX of 100 UNIT/ML 00 dose of 45 Me dicin injection units a e day via insulin pump. 90 day supply Insulin 2020-10 Yes [id number] Inject [facility]argine 10-[facility] ge (BASAGLAR 00:00: usly a MAX of KWIKPEN) 00 dose of 16 Medic in 100 UNIT/ML units a e SOPN day in case of pump failure. Insulin Pen 2020-10 Yes [id number] Use with [facility] Needle (BD 10-25 insulin Colleg e PEN NEEDLE 00:00: pen at of [place] U/F) 00 least five Medi jorge 32G X 4 MM times a e MISC day in case of pump failure. Acetone, 2020-10 Yes [id number] check [facility] Urine, Test 10-25 urine [facility] STRP 00:00: ketones if of 00 BG >300 Medicin mg/dL or e during illness BAQSIMI TWO 2020-10 Yes [id number] 1{each} 1 Each by [facility] PACK 3 10-25 Nasal College MG/DOSE 00:00: route as of POW 00 needed Medicin (for e severe hypoglycem ia). Glucose 2020-10 Yes [id number] Check [facility] Blood 10-25 blood College Strips 00:00: sugars 6 of (CONTOUR 00 times a Medicin NEXT TEST) day. 90 e day supply. Dx Code: E 1065 ONE TOUCH 2020-10 Yes [id number] Check BG 6 [facility] ULTRASOFT 1-08 9101 times a College LANCETS 00:00: day. 90 of [facility] 00 day Medicin supply. e casirivimab 2020- No [id number] 1200mg Univers -imdevimab 05-22 ity of (REGEN-COV 14:30: 14:34 [place] (EUA)) 00 :00 Medical 1,200 mg in Branch NaCl 0.9% (NS) 60 mL IV infusion casirivimab 2020- No [id number] 1200mg 1,200 mg, Univers -imdevimab 05-22 IV ity of (REGEN-COV 14:30: 14:34 In[place], [place] (EUA)) 00 :00 ONCE, [facility] 1,200 mg in 05/22/21 at [facility] NaCl 0.9% 0930, For (NS) 60 mL 1 IV infusion dose
Ad core measures abstractor as an IV infusion via pump or gravity over at least 60 minutes through an intravenou s line containing a sterile, in-line or add-on 0.2-micron polyethers ulfone (PES) filter.&nb sp;Stable 36 hours refrigerat ed; 4 hours at room temperatur e. &nbs p;
levothyroxi Yes Take one [facility] ne 7-23 tablet by [facility] (SYNTHROID) 00:00: mouth of 137 MCG 00 daily. Medicin tablet e THYROID OR 2019-10 Yes 175ug Take 175 [facility] 2-01 mcg by [facility] 20:09: mouth of 52 daily. Medicin e doxycycline 2019-10 Yes 50mg Take 50 mg [facility] (VIBRAMYCIN 2-01 by mouth Milagro ege ) 50 MG 20:09: daily. of capsule 52 Medicin e THYROID OR 2019-10 Yes 175ug Take 175 [facility] 2-01 mcg by [facility] 20:09: mouth of 52 daily. Medicin e doxycycline 2019-10 Yes 50mg Take 50 mg [facility] (VIBRAMYCIN 2-01 by mouth Milagro ege ) 50 MG 20:09: daily. of capsule 52 Medicin e THYROID OR 2019-10 Yes 175ug Take 175 [facility] 2-01 mcg by College 14:09: mouth of 52 daily. Medicin e THYROID OR 2019-10 Yes 175ug Take 175 [facility] 2-01 mcg by College 14:09: mouth of 52 daily. Medicin e THYROID OR 2019-10 Yes 175ug Take 175 [facility] 2-01 mcg by College 14:09: mouth of 52 daily. Medicin e THYROID OR 2019-10 Yes 175ug Take 175 [facility] 2-01 mcg by College 14:09: mouth of 52 daily. Medicin e duloxetine 2019-10 Yes 40mg Take 40 mg [facility] (CYMBALTA) 1-24 by mouth Colle ge 20 MG 00:00: daily. of capsule 00 Medicin e duloxetine 2019-10 Yes 40mg Take 40 mg [facility] (CYMBALTA) 1-24 by mouth Colle ge 20 MG 00:00: daily. of capsule 00 Medicin e duloxetine 2019-10 Yes 40mg Take 40 mg [facility] (CYMBALTA) 1-24 by mouth Colle ge 20 MG 00:00: daily. of capsule 00 Medicin e duloxetine 2019-10 Yes 20mg Take 20 mg [facility] (CYMBALTA) 1-24 by mouth Colle ge 20 MG 00:00: daily. of capsule 00 Medicin e duloxetine 2019-10 Yes 20mg Take 20 mg [facility] (CYMBALTA) 1-24 by mouth Colle ge 20 MG 00:00: daily. of capsule 00 Medicin e duloxetine 2019-10 Yes 20mg Take 20 mg [facility] (CYMBALTA) 1-24 by mouth Colle ge 20 MG 00:00: daily. of capsule 00 Medicin e Glucose 2020-0 Yes [id number] Check [facility] Blood 5-20 9101 blood College Strips 00:00: sugars 10 of (CONTOUR 00 times a Medicin NEXT TEST) day Dx e Code: E 10.65 Glucose 2020-0 Yes [id number] Check [facility] Blood 5-20 9101 blood College Strips 00:00: sugars 10 of (CONTOUR 00 times a Medicin NEXT TEST) day Dx e Code: E 10.65 Glucose 2020-0 Yes [id number] Check [facility] Blood 5-20 9101 blood College Strips 00:00: sugars 10 of (CONTOUR 00 times a Medicin NEXT TEST) day Dx e Code: E 10.65 Insulin 2020-0 Yes upt to 35 [facility] Glargine 3-19 units [facility] 100 UNIT/ML 00:00: subcut a of SOPN 00 day in the Medicin event of e insulin pump failure Insulin Yes upt to 35 [facility] Glargine 3-19 units [facility] 100 UNIT/ML 00:00: subcut a of SOPN day in the Medicin event of e insulin pump failure Insulin Yes upt to 35 [facility] Glargine 3-19 units [facility] 100 UNIT/ML 00:00: subcut a of SOPN day in the Medicin event of e insulin pump failure THYROID OR Yes 175ug Take 175 [facility] 1-31 mcg by College 22:06: mouth of 46 daily. Medicin e doxycycline Yes 50mg Take 50 mg [facility] (VIBRAMYCIN 1-31 by mouth Milagro ege ) 50 MG 22:06: daily. of capsule 46 Medicin e Glucagon, Yes Inject IM [place] donna rDNA, 6-26 1 mg for College (GLUCAGON 00:00: severe of EMERGENCY) 00 hypoglycem Med icin 1 MG KIT ia (BG e <70) PRN. Glucagon, Yes Inject IM [place] donna rDNA, 6-26 1 mg for College (GLUCAGON 00:00: severe of EMERGENCY) 00 hypoglycem Med icin 1 MG KIT ia (BG e <70) PRN. Glucagon, Yes Inject IM [place] donna rDNA, 6-26 1 mg for College (GLUCAGON 00:00: severe of EMERGENCY) 00 hypoglycem Med icin 1 MG KIT ia (BG e <70) PRN. Glucagon, Yes Inject IM [place] donna rDNA, 1 MG 6-26 1 mg for Colle ge KIT 00:00: severe of 00 hypoglycem Medicin ia (BG e <70) PRN. Glucose Yes Testing up [facility] or Blood 5- to 10 College Strips 00:00: times per of (CONTOUR day for Medicin NEXT TEST) blood e glucose control. 90 day supply FLUoxetine Yes TAKE 1 Unive rs 20 mg 2-22 TABLET BY ity of tablet 00:00: MOUTH [place] 00 EVERY Medical MORNING Branch ONCE A DAY FLUoxetine Yes TAKE 1 Unive rs 20 mg 2-22 TABLET BY ity of tablet 00:00: MOUTH [place] 00 EVERY Medical MORNING Branch ONCE A DAY lansoprazol Yes 30mg Take 30 mg Univers e 1-27 by mouth ity of (PREVACID) 20:11: daily. [place] 30 mg 23 Medical capsule Branch lansoprazol 0 Yes 30mg Take 30 mg Univers e 1-27 by mouth ity of (PREVACID) 20:11: daily. [place] 30 mg 23 Medical capsule Branch benzoyl Yes [id number] Use Univer s peroxide 10 1-04 topical ity o f % external 00:00: daily with [place] wash 00 shower to Medical affected Branch area. benzoyl Yes [id number] Use Univer s peroxide 10 1-04 topical ity o f % external 00:00: daily with [place] wash 00 shower to Medical affected Branch area. ONE TOUCH 2015-10 Yes 1{each} 1 Each. [facility] LANCETS 0-18 [facility] 00:00: of 00 Medicin e ONE TOUCH 2015-10 Yes 1{each} 1 Each. [facility] LANCETS 0-18 [facility] 00:00: of 00 Medicin e ONE TOUCH 2015-10 Yes 1{each} 1 Each. [facility] LANCETS 0-18 [facility] 00:00: of 00 Medicin e ONE TOUCH 2015-10 Yes 1{each} 1 Each. [facility] LANCETS 0-18 [facility] 00:00: of 00 Medicin e levothyroxi 2015- Yes [id number] 175ug Take 1 Univers ne 9-21 tablet by ity of (SYNTHROID) 00:00: mouth [place] 175 mcg 00 every Medical tablet morning. Branch ibuprofen Yes [id number] 800mg Take 1 Univers (MOTRIN) 9-21 tablet by ity of 800 mg 00:00: mouth [place] tablet 00 every 6 Medical (six) Branch hours as needed for Pain (scale 4-6). levothyroxi 2015- Yes [id number] 175ug Take 1 Univers ne 9-21 tablet by ity of (SYNTHROID) 00:00: mouth [place] 175 mcg 00 every Medical tablet morning. Branch ibuprofen Yes [id number] 800mg Take 1 Univers (MOTRIN) 9-21 tablet by ity of 800 mg 00:00: mouth [place] tablet 00 every 6 Medical (six) Branch hours as needed for Pain (scale 4-6). Polyethylen Yes Take 1 cap Univers e Glycol 9-01 full daily ity o f 3350 (PEG 00:00: with 8 oz Nader as 3350-GRX) 00 of fluid. Medic al Powd May Branch titrate as discussed in the office. Polyethylen Yes Take 1 cap Univers e Glycol 9-01 full daily ity o f 3350 (PEG 00:00: with 8 oz [place] as 3350-GRX) 00 of fluid. Medic al Powd May Branch titrate as discussed in the office. MINASTRIN Yes 1{tbl} Take 1 Tab Univers 24 FE 1 3-30 by mouth ity of mg-20 00:00: daily. [place] mcg(24) /75 00 Medical mg (4) per Branch tablet MINASTRIN Yes 1{tbl} Take 1 Tab Univers 24 FE 1 3-30 by mouth ity of mg-20 00:00: daily. [place] mcg(24) /75 00 Medical mg (4) per Branch tablet insulin Yes USE VIA [facility] aspart 2-22 INSULIN [facility] (NOVOLOG) 00:00: PUMP UP TO of 100 UNIT/ML 00 100 UNITS Med icin injection PER DAY e insulin Yes USE VIA [facility] aspart 2-22 INSULIN [facility] (NOVOLOG) 00:00: PUMP UP TO of 100 UNIT/ML 00 100 UNITS Med icin injection PER DAY e insulin Yes USE VIA [facility] aspart 222 INSULIN [facility] (NOVOLOG) 00:00: PUMP UP TO of 100 UNIT/ML 00 100 UNITS Med icin injection PER DAY e insulin Yes USE VIA [facility] aspart 2-22 INSULIN [facility] (NOVOLOG) 00:00: PUMP UP TO of 100 UNIT/ML 00 100 UNITS Med icin injection PER DAY e NOVOLOG 100 Yes By insulin Univers unit/mL 2-22 pump ity of solution 00:00: [place] [facility] NOVOLOG 100 Yes By insulin Univers unit/mL 2-22 pump ity of solution 00:00: [place] [address] Medical Branch Immunizations Ordered Immunization Filled Date Status Comments Sour ce Name Immunization Name Influenza Quad-PF 2021-05-18 Completed [facility] 00:00:00 of Medicine Influenza Quad-PF 2021-05-18 Completed [facility] 00:00:00 of Medicine Influenza Quad-PF 2021-05-18 Completed [facility] 00:00:00 of Medicine Influenza Quad-PF 2021-05-18 Completed [facility] 00:00:00 of Medicine HPV 2015-02-27 Completed University of 00:00:00 [facility] Meningococcal 2015-02-27 Completed University of Polysaccharide (groups 00:00:00 [place] [facility] A, C, Y and W-135) Branch conjugate vaccine (MCV4P) HPV 2015-02-27 Completed University of 00:00:00 [facility] Meningococcal 2015-02-27 Completed University of Polysaccharide (groups 00:00:00 [place] [facility] A, C, Y and W-135) Branch conjugate vaccine (MCV4P) Meningococcal 2013-06-08 Completed University of Oligosaccharide 00:00:00 [place] Med ical (groups A, C, Y and Branc h W-135) conjugate vaccine (MCV4O) Meningococcal 2013-06-08 Completed University of Oligosaccharide 00:00:00 [place] Med ical (groups A, C, Y and Branc h W-135) conjugate vaccine (MCV4O) TDAP 2012-06-15 Completed University of 00:00:00 [facility] Meningococcal 2012-06-15 Completed University of Polysaccharide (groups 00:00:00 [place] [facility] A, C, Y and W-135) Branch conjugate vaccine (MCV4P) TDAP 2012-06-15 Completed University of 00:00:00 [facility] Meningococcal 2012-06-15 Completed University of Polysaccharide (groups 00:00:00 [place] [facility] A, C, Y and W-135) Branch conjugate vaccine (MCV4P) MMR 2007-02-08 Completed University of 00:00:00 [facility] Varicella 2007-02-08 Completed University of (varivax)(chicken pox) 00:00:00 [facility] DTAP 2007-02-08 Completed University of 00:00:00 [facility] IPV 2007-02-08 Completed University of 00:00:00 [facility] MMR 2007-02-08 Completed University of 00:00:00 [facility] Varicella 2007-02-08 Completed University of (varivax)(chicken pox) 00:00:00 [facility] DTAP 2007-02-08 Completed University of 00:00:00 [facility] IPV 2007-02-08 Completed University of 00:00:00 [facility] Varicella 2006-06-25 Completed University of (varivax)(chicken pox) 00:00:00 [facility] Branch Varicella 2006-06-25 Completed University of (varivax)(chicken pox) 00:00:00 [facility] Branch DTAP 2000-05-20 Completed University of 00:00:00 [facility] HIB 4 Dose Schedule 2000-05-20 Completed Unive rsity of 00:00:00 [facility] MMR 2000-05-20 Completed University of 00:00:00 [facility] DTAP 2000-05-20 Completed University of 00:00:00 [facility] HIB 4 Dose Schedule 2000-05-20 Completed Unive rsity of 00:00:00 [facility] MMR 2000-05-20 Completed University of 00:00:00 [facility] DTAP 1999-12-18 Completed University of 00:00:00 [facility] Hep B, Adol or Pedi 1999-12-18 Completed Unive rsity of Dosage 00:00:00 [facility] HIB 4 Dose Schedule 1999-12-18 Completed Unive rsity of 00:00:00 [facility] IPV 1999-12-18 Completed University of 00:00:00 [facility] Branch DTAP 1999-12-18 Completed University of 00:00:00 [facility] Hep B, Adol or Pedi 1999-12-18 Completed Unive rsity of Dosage 00:00:00 [facility] HIB 4 Dose Schedule 1999-12-18 Completed Unive rsity of 00:00:00 [facility] IPV 1999-12-18 Completed University of 00:00:00 [place] [facility] [place] DTAP 1999-04-28 Completed University of 00:00:00 [facility] HIB 4 Dose Schedule 1999-04-28 Completed Unive rsity of 00:00:00 [facility] IPV 1999-04-28 Completed University of 00:00:00 [place] [facility] DTAP 1999-04-28 Completed University of 00:00:00 [facility] HIB 4 Dose Schedule 1999-04-28 Completed Unive rsity of 00:00:00 [facility] IPV 1999-04-28 Completed University of 00:00:00 [facility] Branch DTAP 1999-01-20 Completed University of 00:00:00 [facility] Hep B, Adol or Pedi 1999-01-20 Completed Unive rsity of Dosage 00:00:00 [facility] HIB 4 Dose Schedule 1999-01-20 Completed Unive rsity of 00:00:00 [facility] IPV 1999-01-20 Completed University of 00:00:00 [facility] DTAP 1999-01-20 Completed University of 00:00:00 [facility] Hep B, Adol or Pedi 1999-01-20 Completed Unive rsity of Dosage 00:00:00 [facility] HIB 4 Dose Schedule 1999-01-20 Completed Unive rsity of 00:00:00 [facility] IPV 1999-01-20 Completed University of 00:00:00 [facility] Hep B, Adol or Pedi 1998 Completed Unive rsity of Dosage 00:00:00 [facility] Hep B, Adol or Pedi 1998 Completed Unive rsity of Dosage 00:00:00 [facility] Vital Signs Vital Name Observation Time Observation Value Comments Source Systolic blood 2022-01-26 15:54:00 118 mm[Hg] [facility] pressure Medicine Diastolic blood 2022-01-26 15:54:00 80 mm[Hg] [facility] [facility] Medicine Heart rate 2022-01-26 15:54:00 98 /min [facility] Body height 2022-01-26 15:54:00 154.9 cm [facility] Body weight 2022-01-26 15:54:00 60.328 kg [facility] BMI 2022-01-26 15:54:00 25.13 kg/m2 [facility] Systolic blood 2021-12-15 17:30:00 100 mm[Hg] [facility] pressure Medicine Diastolic blood 2021-12-15 17:30:00 70 mm[Hg] [facility] Medicine Heart rate 2021-12-15 17:30:00 99 /min [facility] Body height 2021-12-15 17:30:00 154[facility]9 [facility] Body weight 2021-12-15 17:30:00 58.06 kg [facility] BMI 2021-12-15 17:30:00 24.19 kg/m2 [facility] ollege of Medicine Systolic blood 2021-11-17 15:21:00 108 mm[Hg] [facility] pressure Medicine Diastolic blood 2021-11-17 15:21:00 72 mm[Hg] [facility] pressure Medicine Heart rate 2021-11-17 15:21:00 111 /min [facility] ollege of Medicine Body height 2021-11-17 15:21:00 154.9 cm [facility] Body weight 2021-11-17 15:21:00 56.7 kg [facility] Medicine BMI 2021-11-17 15:21:00 23.62 kg/m2 [facility] ollege of Medicine HEIGHT 2021-11-17 10:44:00 157.5 cm WEIGHT 2021-11-17 10:44:00 59.8 kg HEIGHT 2021-11-17 10:44:00 157.5 cm WEIGHT 2021-11-17 10:44:00 59.8 kg Systolic blood 2021-08-25 17:14:00 102 mm[Hg] [facility] pressure Medicine Diastolic blood 2021-08-25 17:14:00 70 mm[Hg] [facility] Medicine Heart rate 2021-08-25 17:14:00 96 /min [facility] ol[facility] of Medicine Body height 2021-08-25 17:14:00 154.9 cm [facility] Medicine Body weight 2021-08-25 17:14:00 58.06 kg [facility] Medicine BMI 2021-08-25 17:14:00 24.19 kg/m2 [facility] of Medicine Systolic blood 2021-05-22 15:35:00 106 mm[Hg] Univer sity of pressure [facility] Branch Diastolic blood 2021-05-22 15:35:00 80 mm[Hg] Unive rsity of pressure [facility] Heart rate 2021-05-22 15:35:00 74 /min [facility] Body temperature 2021-05-22 15:35:00 36.28 Lani Univ ersity of [facility] Respiratory rate 2021-05-22 15:35:00 18 /min [facility] Oxygen saturation in 2021-05-22 15:35:00 99 /min University Arterial blood by [facility] Pulse oximetry Branch Body height 2021-05-22 13:25:00 154.9 cm [facility] Body weight 2021-05-22 13:25:00 54.432 kg General acute hospital BMI 2021-05-22 13:25:00 22.67 kg/m2 [facility] acute hospital Systolic blood 2020-09-17 20:05:00 92 mm[Hg] [facility] of pressure Medicine Diastolic blood 2020-09-17 20:05:00 64 mm[Hg] [facility] Medicine Heart rate 2020-09-17 20:05:00 93 /min [facility] ollege of [facility] Respiratory rate 2020-09-17 20:05:00 16 /min [facility] Body height 2020-09-17 20:05:00 154.9 cm [facility] ol[facility] of [facility] Body weight 2020-09-17 20:05:00 53.524 kg [facility] of Medicine BMI 2020-09-17 20:05:00 22.30 kg/m2 [facility] Medicine Systolic blood 2019-11-17 21:59:00 92 mm[Hg] [facility] of pressure Medicine Diastolic blood 2019-11-17 21:59:00 68 mm[Hg] [facility] Medicine Heart rate 2019-11-17 21:59:00 73 /min [facility] of Medicine Respiratory rate 2019-11-17 21:59:00 16 /min [facility] Body height 2019-11-17 21:59:00 154.9 cm [facility] of [facility] Body weight 2019-11-17 21:59:00 54.432 kg [facility] of [facility] BMI 2019-11-17 21:59:00 22.67 kg/m2 [facility] Medicine Systolic blood 2021-11-17 12:50:00 121 mm[Hg] JUAN CARLOS [facility] Diastolic blood 2021-11-17 12:50:00 74 mm[Hg] [facility] Heart rate 2021-11-17 12:50:00 86 /min [facility] Respiratory rate 2021-11-17 12:50:00 18 /min [facility] Oxygen saturation in 2021-11-17 12:50:00 99 /min [facility] Arterial blood by Medical Ce nter Pulse oximetry Body temperature 2021-11-17 10:44:00 36.94 Lani [facility] Body height 2021-11-17 10:44:00 157.5 cm [facility] Body weight 2021-11-17 10:44:00 59.8 kg [facility] BMI 2021-11-17 10:44:00 24.11 kg/m2 [facility] Procedures Procedure Date / Time Performing Clinician Source Performed POCT HEMOGLOBIN A1C 2022-01-26 16:07:00 Kassidy Bahena [facility] POCT REAGENT STP/BLD 2022-01-26 16:07:00 Kassidy Bahena [facility] GLUCOSE [facility] POCT REAGENT STP/BLD 2021-12-15 17:37:00 Kassidy Bahena [facility] POCT HEMOGLOBIN A1C 2021-11-17 15:28:00 Kassidy Bahena [facility] KETONES QUAL 2021-11-17 15:28:00 Kassidy Bahena [facility] POCT REAGENT STP/BLD 2021-11-17 15:28:00 Kassidy Bahena [facility] URINALYSIS W/ REFLEX 2021-11-17 12:24:00 Lexii Benz [facility] S [facility] URINE CULTURE Center SCREEN, URINE 2021-11-17 12:24:[address] [facility] ECG 12-LEAD 2021-11-17 12:17:21 Unknown, Hl7 Doctor [facility] ECG 12-LEAD 2021-11-17 12:17:21 Unknown, Hl7 Doctor [facility] TSH/FREE T4 IF INDICATED 2021-11-17 11:14:[address] [facility] T4, FREE 2021-11-17 11:14:00 Lexii Benz [facility] COMPREHENSIVE METABOLIC 2021-11-17 11:12:00 Alayna Benzramakrishna I [facility] PANEL Center CBC W/PLT COUNT & AUTO 2021-11-17 11:12:00 Renate Benzevangelista [facility] DIFFERENTIAL Center KETONE, BLOOD 2021-11-17 11:12:00 Renate Benzevangelista [facility] CBC W/PLT COUNT & AUTO 2021-11-17 11:12:00 Renate Benzevangelista [facility] DIFFERENTIAL Center BLOOD GAS, VENOUS 2021-11-17 11:05:00 Renate Benzevangelista [facility] POCT HEMOGLOBIN A1C 2021-08-25 17:22:00 Kassidy Bahena [facility] POCT REAGENT STP/BLD 2021-08-25 17:21:00 Kassidy Bahena [facility] Medicine [id number] CONSENT 2021-05-22 05:01:00 Doctor Unassigned, No Unive [facility] Medical Branch Plan of Care Planned Activity Planned Date Details Comments Source Future Scheduled 2022-06-15 DTAP/TDAP/TD VACCINES [facility] Test 00:00:00 (7 - Td or Tdap) [code Medic co Center = DTAP/TDAP/TD VACCINES (7 - Td or Tdap)] Future Scheduled 2022-01-27 COVID-19 Vaccine (1) [facility] Test 09:: [code = COVID-19 of Medicine Vaccine (1)] Future Scheduled 2022-01-27 HPV VACCINE (2 - 3-dose [facility] Test 09:11:31 series) [code = HPV of Medic ine VACCINE (2 - 3-dose series)] Future Scheduled 2022-01-27 BMI FOLLOW UP PLAN [facility] Test 09:11:31 [code = BMI FOLLOW UP of Med icine PLAN] Future Scheduled 2022-01-27 Hepatitis C screening [facility] Test 09:11:31 (procedure) [code = of Medic ine 082815269] Future Scheduled 2022-01-27 Human immunodeficiency [facility] Test 09:11:31 virus screening of Medicine (procedure) [code = 445815695] Future Scheduled 2022-01-27 Screening for malignant [facility] Test 09:11:31 neoplasm of cervix of Medici ne (procedure) [code = 412913479] Future Scheduled 2022-01-27 Diabetic foot [facility] Test 09:11:31 examination of Medicine (regime/therapy) [code = 358087443] Future Scheduled 2022-01-27 ANNUAL DIABETIC [facility] Test 09:11:31 RETINOPATHY SCREENING of Med icine [code = ANNUAL DIABETIC RETINOPATHY SCREENING] Future Scheduled 2022-01-27 FLU VACCINE > 6 MONTHS B [facility] Test 09:11:31 [code = FLU VACCINE > 6 of M edicine MONTHS] Future Scheduled 2022-01-27 TETANUS SHOT (ADULT) [facility] Test 09:11:31 [code = TETANUS SHOT of Medi cine (ADULT)] Future Scheduled 2022-01-27 Hemoglobin A1c [facility] Test 09:11:31 measurement (procedure) of M edicine [code = 88004675] Future Scheduled 2022-01-26 COMPREHENSIVE METABOLIC Ordered: [facility] Test 11:40:43 PANEL [code = 42306-2] 01/26/2022 of Me dicine Future Scheduled 2022-01-26 TSH [code = 09973-2] Ordered: [facility] Test 11:39:36 01/26/2022 of Medicine Future Scheduled 2022-01-26 T4 FREE [code = 3024-7] Ordered: [facility] Test 11:39:36 01/26/2022 of Medicine Future Scheduled 2021-12-15 COVID-19 Vaccine (1) [facility] Test 11:40:19 [code = COVID-19 of Medicine Vaccine (1)] Future Scheduled 2021-12-15 HPV VACCINE (2 - 3-dose [facility] Test 11:40:19 series) [code = HPV of Medic ine VACCINE (2 - 3-dose series)] Future Scheduled 2021-12-15 Hepatitis C screening [facility] Test 11:40:19 (procedure) [code = of Medic ine 159525988] Future Scheduled 2021-12-15 Human immunodeficiency [facility] Test 11:40:19 virus screening of Medicine (procedure) [code = 124428290] Future Scheduled 2021-12-15 Screening for malignant [facility] Test 11:40:19 neoplasm of cervix of Medici ne (procedure) [code = 226365496] Future Scheduled 2021-12-15 Diabetic foot [facility] Test 11:40:19 examination of Medicine (regime/therapy) [code = 875368531] Future Scheduled 2021-12-15 ANNUAL DIABETIC [facility] Test 11:40:19 RETINOPATHY SCREENING of Med icine [code = ANNUAL DIABETIC RETINOPATHY SCREENING] Future Scheduled 2021-12-15 Hemoglobin A1c [facility] Test 11:40:19 measurement (procedure) of M edicine [code = 91714261] Future Scheduled 2021-12-15 TETANUS SHOT (ADULT) [facility] Test 11:40:19 [code = TETANUS SHOT of Medi cine (ADULT)] Future Scheduled 2021-11-17 ANNUAL DIABETIC [facility] Test 09:58:49 RETINOPATHY SCREENING of Med icine [code = ANNUAL DIABETIC RETINOPATHY SCREENING] Future Scheduled 2021-11-17 IRIS EXAM [code = Ordered: [facility] Test 09:58:47 54905] 11/17/2021 of Medicine Future Scheduled 2021-11-17 TSH [code = 59466-0] Ordered: [facility] Test 09:58:26 11/17/2021 of Medicine Future Scheduled 2021-11-17 T4 FREE [code = 3024-7] Ordered: [facility] Test 09:58:26 11/17/2021 of Medicine Future Scheduled 2021-11-17 Hemoglobin A1c [facility] Test 09:35:14 measurement (procedure) of M edicine [code = 10862533] Future Scheduled 2021-11-17 COVID-19 Vaccine (1) [facility] Test 09:20:56 [code = COVID-19 of Medicine Vaccine (1)] Future Scheduled 2021-11-17 HPV VACCINE (2 - 3-dose [facility] Test 09:20:56 series) [code = HPV of Medic ine VACCINE (2 - 3-dose series)] Future Scheduled 2021-11-17 Hepatitis C screening [facility] Test 09:20:56 (procedure) [code = of Medic ine 203677027] Future Scheduled 2021-11-17 Human immunodeficiency B [facility] Test 09:20:56 virus screening of Medicine (procedure) [code = 378264258] Future Scheduled 2021-11-17 Screening for malignant [facility] Test 09:20:56 neoplasm of cervix of Medici ne (procedure) [code = 228920753] Future Scheduled 2021-11-17 Diabetic foot [facility] Test 09:20:56 examination of Medicine (regime/therapy) [code = 420846446] Future Scheduled 2021-11-17 TETANUS SHOT (ADULT) [facility] Test 09:20:56 [code = TETANUS SHOT of Medi cine (ADULT)] Future Scheduled 2021-10-[address] [facility] Test 00:00:00 (12+) [code = [facility] DEPRESSION SCREENING (12+)] Future Scheduled 2021-08-25 COVID-19 Vaccine (1) [facility] Test 13:38:16 [code = COVID-19 of Medicine Vaccine (1)] Future Scheduled 2021-08-25 HPV VACCINE (2 - 3-dose [facility] Test 13:38:16 series) [code = HPV of Medic ine VACCINE (2 - 3-dose series)] Future Scheduled 2021-08-25 Hepatitis C screening [facility] Test 13:38:16 (procedure) [code = of Medic ine 244061856] Future Scheduled 2021-08-25 Human immunodeficiency [facility] Test 13:38:16 virus screening of Medicine (procedure) [code = 498300851] Future Scheduled 2021-08-25 Screening for malignant [facility] Test 13:38:16 neoplasm of cervix of Medici ne (procedure) [code = 027581238] Future Scheduled 2021-08-25 Diabetic foot [facility] Test 13:38:16 examination of Medicine (regime/therapy) [code = 044219786] Future Scheduled 2021-08-25 ANNUAL DIABETIC [facility] Test 13:38:16 RETINOPATHY SCREENING of Med icine [code = ANNUAL DIABETIC RETINOPATHY SCREENING] Future Scheduled 2021-08-25 Hemoglobin A1c [facility] Test 13:38:16 measurement (procedure) of M edicine [code = 61910979] Future Scheduled 2021-08-25 TETANUS SHOT (ADULT) [facility] Test 13:38:16 [code = TETANUS SHOT of Medi cine (ADULT)] Future Scheduled 2021-08-25 TSH [code = 96167-8] Ordered: [facility] Test 11:55:26 08/25/2021 of Medicine Future Scheduled 2021-08-25 T4 FREE [code = 3024-7] Ordered: [facility] Test 11:55:26 08/25/2021 of Medicine Future Scheduled 2021-08-25 COMPREHENSIVE METABOLIC Ordered: [facility] Test 11:55:26 PANEL [code = 35905-6] 08/25/2021 of Me dicine Future Scheduled 2021-06-18 INFLUENZA VACCINE (#1) [facility] Test 00:00:00 [code = INFLUENZA Medical Ce nter VACCINE (#1)] Future Scheduled 2019 Screening for malignant [facility] Test 00:00:00 neoplasm of cervix Medical C enter (procedure) [code = 473739037] Future Scheduled 2016 HEPATITIS C SCRE[facility]ING [facility] Test 00:00:00 [code = HEPATITIS C Medical Center SCREENING] Future Scheduled 2003 COVID-19 VACCINE (1) [facility] Test 00:00:00 [code = COVID-[address] VACCINE (1)] Future Scheduled TETANUS SHOT (ADULT) [facility] Test [code = TETANUS SHOT of Medi cine (ADULT)] Future Scheduled HIV SCREENING [code = [employer] [facility] HIV SCREENING] of Medicine Future Scheduled FLU VACCINE > 6 MONTHS [employer] Test [code = FLU VACCINE > 6 of M edicine MONTHS] Future Scheduled IRIS EXAM [code = Ordered: [facility] Test 26787] 09/17/2020 of Medicine Future Scheduled A1C TESTING EVERY 6 [employer] Test MONTHS [code = A1C of Medici ne TESTING EVERY 6 MONTHS] Future Scheduled HPV VACCINE (2 - 3-dose [facility] Test series) [code = HPV of Medic ine VACCINE (2 - 3-dose series)] Future Scheduled ANNUAL DIABETIC [facility] RETINOPATHY SCREENING of Med icine [code = ANNUAL DIABETIC RETINOPATHY SCREENING] Future Scheduled HEPATITIS C SCREENING [employer] Test [code = HEPATITIS C of Medic ine SCREENING] Future Scheduled HIV SCREENING [code = [employer] [facility] HIV SCREENING] of Medicine Future Scheduled CERVICAL CANCER [facility] Test SCREENING 3 YEAR FOLLOW of M edicine UP [code = CERVICAL CANCER SCREENING 3 YEAR FOLLOW UP] Future Scheduled FLU VACCINE > 6 MONTHS [employer] Test [code = FLU VACCINE > 6 of M edicine MONTHS] Future Scheduled Diabetic foot [facility] Test examination of Medicine (regime/therapy) [code = 481873178] Future Scheduled TETANUS SHOT (ADULT) [employer] Test [code = TETANUS SHOT of Medi cine (ADULT)] Future Scheduled A1C TESTING EVERY 6 [employer] Test MONTHS [code = A1C of Medici ne TESTING EVERY 6 MONTHS] Future Scheduled HPV VACCINE (2 - 3-dose [employer] Test series) [code = HPV of Medic ine VACCINE (2 - 3-dose series)] Future Scheduled HEPATITIS C SCREENING [employer] Test [code = HEPATITIS C of Medic ine SCREENING] Future Scheduled HIV SCREENING [code = [employer] [facility] HIV SCREENING] of Medicine Future Scheduled CERVICAL CANCER [facility] Test SCREENING 3 YEAR FOLLOW of M edicine UP [code = CERVICAL CANCER SCREENING 3 YEAR FOLLOW UP] Future Scheduled FLU VACCINE > 6 MONTHS [employer] Test [code = FLU VACCINE > 6 of M edicine MONTHS] Future Scheduled Diabetic foot [employer] [employer] Test examination of Medicine (regime/therapy) [code = 263847384] Future Scheduled ANNUAL DIABETIC [facility] Test RETINOPATHY SCREENING of Med icine [code = ANNUAL DIABETIC RETINOPATHY SCREENING] Future Scheduled TETANUS SHOT (ADULT) [employer] Test [code = TETANUS SHOT of Medi cine (ADULT)] Encounters Start End Encounter Admission Attending Care Care Encounter Source Date/Time Date/Time Type Type Clinicians Facility Department ID 2022-01-26 2022-01-26 Office LISY BAHENA [id number] [facility] 10:54:08 13:12:05 Visit DIMPI AMBULATOR 350.1.13.21 College Y 0.2.7.2.686 of [id number] Medi jorge 310 e 2021-12-15 2021-12-15 Office LISY Bahena [id number] [facility] 11:00:00 12:09:32 Visit Dimpi Marcel AMBULATOR 350.1.13.21 College Y 0.2.7.2.686 of [id number] Medi jorge 310 e 2021-11-17 2021-11-17 Outpatient [facility] [id number] [facility] 00:00:00 23:59:00 Viktoriya dickson of Medicin e 2021-11-17 2021-11-17 Office LISY BAHENA [id number] [facility] 09:14:57 13:31:18 Visit DIMPI AMBULATOR 350.1.13.21 College Y 0.2.7.2.686 of [id number] [facility] 310 e 2021-11-17 2021-11-17 Emergency ER EMILIANA, [facility] Emergency [id number] [facility] 10:49:00 12:57:00 ADEDOYIN 2021-11-17 2021-11-17 Emergency ER Emiliana, [facility] [id number] 10:49:00 12:57:00 [facility] 2021-11-17 2021-11-17 Orders [facility] [id number] 00:00:00 00:00:00 Only [facility] 2021-11-17 2021-11-17 Travel [facility] [id number] [facility] 00:[facility] 00:00:00 [facility] 2021-08-25 2021-08-25 Office LISY BAHENA [id number] [facility] 11:10:21 17:24:58 Visit DIMPI AMBULATOR 350.1.13.21 College Y 0.2.7.2.686 of [id number] [facility] 310 e 2021-05-22 2021-05-22 Outpatient R [facility] [id number] Univers 08:00:00 08:00:00 [id number] [facility] 2021-05-22 2021-05-22 Outpatient R PIO [facility] [id number] Univers 08:00:00 08:00:00 AHMET [facility] 2021-05-22 2021-05-22 Nurse Therapy, Adc Covid Infusion [facility] [id number] Univers 07:28:22 07:58:22 Visit Ahmet Suero 350.1.13.10 [facility] 4.2.7.2.686 [place] [facility] [id number] [facility] 053 Branch 2021-05-22 2021-05-22 Orders Doctor JESSI [id number] Univers 00:00:00 00:00:00 Only Unassigned, MERLIN 350.1.13.10 ity of [facility] 4.2.7.2.[id number] [facility] 009 Branch 2020-11-19 2020-11-19 Office Pietropaolo BCM 1.2.840.114 [id number] [facility] 15:00:00 15:30:00 Visit , Ignacio AMBULATOR 350.1.13.21 College Y 0.2.7.2.686 of [id number] [facility] 310 e 2020-09-17 2020-09-17 Office Pietropaolo BCM 1.2.840.114 [id number] [facility] 13:52:39 15:43:14 Visit , Ignacio AMBULATOR 350.1.13.21 College Y 0.2.7.2.686 of [id number] [facility] 310 e 2019-11-17 2019-11-17 Office Pietropaolo BCM 1.2.840.114 [id number] [facility] 15:34:25 17:40:34 Visit , Ignacio AMBULATOR 350.1.13.21 College Y 0.2.7.2.686 of [id number] [facility] 310 e Results Test Description Test Time Test Comments Results Result Comments Source POCT HEMOGLOBIN A1C 2022-01-26 16:14:00 Test Item Value Reference Range Interpretation Comme nts HEMOGLOBIN A1C (test code = 4548-4) 7.7 % 4.0-5.6 A Lab Interpretation (test code = 58465-5) Abnormal [facility] REAGENT STP/BLD [id number] 16:07:00 Test Item Value Reference Range Interpretation Comments BLOOD GLUCOSE, FASTING (test code = 1558-6) [facility] REAGENT STP/BLD [id number] 17:37:00 Test Item Value Reference Range Interpretation Comments BLOOD GLUCOSE, FASTING (test code = 1558-6) [facility] HEMOGLOBIN [id number] 15:35:00 Test Item Value Reference Range Interpretation Comments HEMOGLOBIN A1C (test code = 4548-4) 7.7 % 4.0-5.6 A Lab Interpretation (test code = Abnormal 73806-7) [id number] 15:29:00 Test Item Value Reference Range Interpretation Comments KETONES, BLOOD (test code = 0964186) [facility] [id number] 15:28:00 Test Item Value Reference Range Interpretation Comments BLOOD GLUCOSE, FASTING (test code = 1558-6) [facility], [id number] 12:47:06 Test Item Value Reference Range Interpretation Comments Preg Test, Ur (test code = 2112-1) Negative [facility] [id number] 12:47:06 Test Item Value Reference Range Interpretation Comments TEST URINE (BEAKER) (test Negative code = 583) Urinalysis w/Microscopic + Reflex to [id number] 12:44:38 Test Item Value Reference Range Interpretation Comments Color, UA (test code = Yellow 5778-6) Clarity, UA (test code = Clear 5767-9) Specific [place], UA 1.015 1.005-1.030 (test code = 5811-5) pH, UA (test code = 6.0 5.0-9.0 5803-2) Protein, UA (test code = Negative Negative 21565-4) Glucose, UA (test code = Negative Negative 365) Ketones, UA (test code = Trace Negative A 2514-8) Bilirubin, UA (test code Negative Negative = 30897-5) Blood, UA (test code = Negative Negative 30619-1) Nitrite, UA (test code = Negative Negative 5802-4) Leukocytes, UA (test Negative Negative code = 5799-2) Urobilinogen, UA (test 0.2 mg/dL 0.2-1.0 code = 59907-0) Bacteria, UA (test code Moderate = 57509-7) RBC, UA (test code = <5 See_Comment [Autom ated message] 799-7) The system [employer] generated this result transmit jose a reference range : /HPF. The refer ence range was not u sed to interpret th is result as normal/abnormal . WBC, UA (test code = <5 See_Comment [Autom ated message] 93990-0) The system whic h generated this result transmit jose a reference range : /HPF. The refer ence range was not u sed to interpret th is result as normal/abnormal . SQUAMOUS EPITHELIAL <5 See_Comment [Automa jose a message] (test code = 10908-4) The sy stem which generated this result transmit jose a reference range : /HPF. The refer ence range was not u sed to interpret th is result as normal/abnormal . Specimen Source (test code = 2795) Lab Interpretation (test Abnormal code = 42694-3) [facility] [id number] 12:44:38 Test Item Value Reference Range Interpretation Comments COLOR (BEAKER) (test code = 470) Yellow CLARITY (BEAKER) (test code = 469) Clear SPECIFIC GRAVITY UA (BEAKER) (test 1.015 1.005-1.030 code = 468) PH UA (BEAKER) (test code = 467) 6.0 5.0-9.0 PROTEIN UA (BEAKER) (test code = Negative Negative 464) GLUCOSE UA (BEAKER) (test code = Negative Negative 365) KETONES UA (BEAKER) (test code = Trace Negative A 371) BILIRUBIN UA (BEAKER) (test code = Negative Negative 462) BLOOD UA (BEAKER) (test code = 461) Negative Negative NITRITE UA (BEAKER) (test code = Negative Negative 465) LEUKOCYTE ESTERASE UA (BEAKER) Negative Negative (test code = 466) UROBILINOGEN UA (BEAKER) (test code 0.2 mg/dL 0.2-1.0 = 463) BACTERIA (BEAKER) (test code = 517) Moderate RBC UA-MANUAL (BEAKER) (test code = <5 /HPF 1659) WBC UA-MANUAL (BEAKER) (test code = <5 /HPF 1661) SQUAMOUS EPITHELIAL MANUAL (BEAKER) <5 /HPF (test code = 1663) SOURCE(BEAKER) (test code = 2795) T4, [id number] 12:41:55 Test Item Value Reference Range Interpretation Comments Free T4 (test code = 3024-7) 1.63 ng/dL 0.70-1.48 H Lab Interpretation (test code = Abnormal 72152-5) [id number] 12:41:55 Test Item Value Reference Range Interpretation Comments FREE T4 (BEAKER) (test code = 655) 1.63 ng/dL 0.70-1.48 H TSH/Free T4 If [id number] 12:00:37 Test Item Value Reference Range Interpretation Comments TSH (test code = 0.173 See_Comment L [Automated message] 14207-8) The system [employer] generated this result transmitted ref erence range: 0.350 - 5.500 uIU/mL. The ref erence range was not u sed to interpret this result as normal/abnor mal. Lab Interpretation (test Abnormal code = 94649-4) [facility] [id number] 12:00:37 Test Item Value Reference Range Interpretation Comments THYROID STIMULATING HORMONE 0.173 uIU/mL 0.350-5.500 L (BEAKER) (test code = 772) Comprehensive metabolic [id number] 11:45:08 Test Item Value Reference Range Interpretation Comments Protein, Total (test 7.8 See_Comment Specime n slightly code = 2885-2) hemolyzed [Automated message] The system which generated this result transmit jose a reference range : 6.0 - 8.3 gm/dL . The reference range was not u sed to interpret th is result as normal/abnormal . Albumin (test code = 4.6 g/dL 3.5-5.0 Specime n slightly 50232-7) hemolyzed Alkaline Phosphatase 67 U/L 40-150 (test code = 6768-6) Total Bilirubin (test 1.8 mg/dL 0.2-1.2 H Specim en slightly code = 1974-2) hemolyzed Sodium (test code = 136 meq/L 369-377 1508-2) Potassium (test code 3.9 meq/L 3.5-5.1 Specime n slightly = 2823-3) hemolyzed Chloride (test code = 102 meq/L 98-107 2074-0) CO2 (test code = 29 meq/L 22-29 2028-06) BUN (test code = 11 mg/dL 7-21 3094-0) Creatinine (test code 0.96 mg/dL 0.57-1.25 Specim en slightly = 2160-0) hemolyzed Glucose (test code = 191 mg/dL 70-105 H 2345-7) Calcium (test code = 10.0 mg/dL 8.4-10.2 62821-2) AST (test code = 20 U/L 5-34 Specimen sl ightly 1920-8) hemolyzed ALT (test code = 13 U/L 6-55 Specimen sl ightly 1742-6) hemolyzed EGFR (test code = 73 mL/min/1.73 [place] [address]-9) NOT ACCURATE CREATININE CLEARANCE IN PREDICTING GLOMERULAR FILTRATION RATE . ESTIMATED GFR I S NOT APPLICABLE FOR DIALYSIS PATIEN TS. KELLY (test code = KELLY) Specimen slightly icteric Lab Interpretation Abnormal (test code = 08424-5) [facility] [id number] 11:45:08 Test Item Value Reference Range Interpretation Comments TOTAL PROTEIN 7.8 gm/dL 6.0-8.3 Specimen sligh tly (BEAKER) (test code = hemoly zed 770) ALBUMIN (BEAKER) 4.6 g/dL 3.5-5.0 Specimen sl ightly (test code = 1145) hemolyzed ALKALINE PHOSPHATASE 67 U/L 40-150 (BEAKER) (test code = 346) BILIRUBIN TOTAL 1.8 mg/dL 0.2-1.2 H Specimen sli ghtly (BEAKER) (test code = hemoly zed 377) SODIUM (BEAKER) (test 136 meq/L 136-145 code = 381) POTASSIUM (BEAKER) 3.9 meq/L 3.5-5.1 Specimen slightly (test code = 379) hemolyzed CHLORIDE (BEAKER) 102 meq/L 98-107 (test code = 382) CO2 (BEAKER) (test 29 meq/L 22-29 code = 355) BLOOD UREA NITROGEN 11 mg/dL 7-21 (BEAKER) (test code = 354) CREATININE (BEAKER) 0.96 mg/dL 0.57-1.25 Specimen slightly (test code = 358) hemolyzed GLUCOSE RANDOM 191 mg/dL 70-105 H (BEAKER) (test code = 652) CALCIUM (BEAKER) 10.0 mg/dL 8.4-10.2 (test code = 697) AST (SGOT) (BEAKER) 20 U/L 5-34 Specimen slightly (test code = 353) hemolyzed ALT (SGPT) (BEAKER) 13 U/L 6-55 Specimen slightly (test code = 347) hemolyzed EGFR (BEAKER) (test 73 mL/min/1.73 ESTIMA JOSE A GFR IS code = 1092) sq m NOT ACCURATE CREATININE CLEARANCE IN PREDICTING GLOMERULAR FILTRATION RATE . ESTIMATED GFR I S NOT APPLICABLE FOR DIALYSIS PATIEN TS. Specimen slightly ictericKetones, [id number] 11:40:37 Test Item Value Reference Range Interpretation Comments Ketones, Blood (test code = 1103) 0.8 mmol/L <0.4 H Lab Interpretation (test code = Abnormal 34071-6) [facility] CenterKET[facility], [id number] 11:40:37 Test Item Value Reference Range Interpretation Comments KETONES, BLOOD (BEAKER) (test code 0.8 mmol/L <0.4 H = 1103) CBC with platelet count + automated [id number] 11:27:08 Test Item Value Reference Range Interpretation Comments WBC (test code = 6690-2) 5.9 See_Comment [A utomated message] The system [employer] generated this result transmitted ref erence range: 3.5 - 10 .5 K/L. The refe rence range was not u sed to interpret this result as normal/abnor mal. RBC (test code = 789-8) 4.91 See_Comment [Au tomated message] The system [employer] generated this result transmitted ref erence range: 3.93 - 5 .22 M/L. The refe rence range was not u sed to interpret this result as normal/abnor mal. MCHC (test code = 786-4) 33.9 See_Comment [A utomated message] The system [employer] generated this result transmitted ref erence range: 32.2 - 3 5.5 GM/DL. The refe rence range was not u sed to interpret this result as normal/abnor mal. Hematocrit (test code = 43.7 % 34.1-44.9 4544-3) MCV (test code = 787-2) 89.0 fL 79.4-94.8 MCH (test code = 785-6) 30.1 pg 25.6-32.2 RDW (test code = 788-0) 12.4 % 11.7-14.4 Platelets (test code = 311 See_Comment [Aut omated message] 777-3) The system [employer] generated this result transmitted ref erence range: 150 - 45 0 K/CU MM. The referen ce range was not u sed to interpret this result as normal/abnor mal. MPV (test code = 9.7 fL 9.0-12.3 59328-8) % Neutros (test code = 57 % 429) % Lymphs (test code = 30 % 430) % Monos (test code = 13 % 431) % Eos (test code = 432) 1 % % Baso (test code = 437) 0 % # Neutros (test code = 3.35 See_Comment [Aut omated message] 670) The system [employer] generated this result transmitted ref erence range: 1.56 - 6 .13 K/L. The refe rence range was not u sed to interpret this result as normal/abnor mal. # Lymphs (test code = 1.75 See_Comment [Auto mated message] 414) The system [employer] generated this result transmitted ref erence range: 1.18 - 3 .74 K/L. The refe rence range was not u sed to interpret this result as normal/abnor mal. # Monos (test code = 0.74 See_Comment H [Autom ated message] 415) The system [employer] generated this result transmitted ref erence range: 0.24 - 0 .36 K/L. The refe rence range was not u sed to interpret this result as normal/abnor mal. # Eos (test code = 416) 0.05 See_Comment [Au tomated message] The system [employer] generated this result transmitted ref erence range: 0.04 - 0 .36 K/L. The refe rence range was not u sed to interpret this result as normal/abnor mal. # Baso (test code = 417) 0.02 See_Comment [A utomated message] The system [employer] generated this result transmitted ref erence range: 0.01 - 0 .08 K/L. The refe rence range was not u sed to interpret this result as normal/abnor mal. Immature 0 % 0-1 Granulocytes-Relative (test code = 2801) Lab Interpretation (test Abnormal code = 14893-1) [facility] W/PLT COUNT & AUTO [id number] 11:27:08 Test Item Value Reference Range Interpretation Comments WHITE BLOOD CELL COUNT (BEAKER) 5.9 K/ L 3.5-10.5 (test code = 775) RED BLOOD CELL COUNT (BEAKER) 4.91 M/ L 3.93-5.22 (test code = 761) HEMOGLOBIN (BEAKER) (test code = 14.8 GM/DL 11.2-15.7 410) HEMATOCRIT (BEAKER) (test code = 43.7 % 34.1-44.9 411) MEAN CORPUSCULAR VOLUME (BEAKER) 89.0 fL 79.4-94.8 (test code = 753) MEAN CORPUSCULAR HEMOGLOBIN 30.1 pg 25.6-32.2 (BEAKER) (test code = 751) MEAN CORPUSCULAR HEMOGLOBIN CONC 33.9 GM/DL 32.2-35.5 (BEAKER) (test code = 752) RED CELL DISTRIBUTION WIDTH 12.4 % 11.7-14.4 (BEAKER) (test code = 412) PLATELET COUNT (BEAKER) (test 311 K/CU MM 150-450 code = 756) MEAN PLATELET VOLUME (BEAKER) 9.7 fL 9.0-12.3 (test code = 754) NEUTROPHILS RELATIVE PERCENT 57 % (BEAKER) (test code = 429) LYMPHOCYTES RELATIVE PERCENT 30 % (BEAKER) (test code = 430) MONOCYTES RELATIVE PERCENT 13 % (BEAKER) (test code = 431) EOSINOPHILS RELATIVE PERCENT 1 % (BEAKER) (test code = 432) BASOPHILS RELATIVE PERCENT 0 % (BEAKER) (test code = 437) NEUTROPHILS ABSOLUTE COUNT 3.35 K/ L 1.56-6.13 (BEAKER) (test code = 670) LYMPHOCYTES ABSOLUTE COUNT 1.75 K/ L 1.18-3.74 (BEAKER) (test code = 414) MONOCYTES ABSOLUTE COUNT (BEAKER) 0.74 K/ L 0.24-0.36 H (test code = 415) EOSINOPHILS ABSOLUTE COUNT 0.05 K/ L 0.04-0.36 (BEAKER) (test code = 416) BASOPHILS ABSOLUTE COUNT (BEAKER) 0.02 K/ L 0.01-0.08 (test code = 417) IMMATURE GRANULOCYTES-RELATIVE 0 % 0-1 PERCENT (BEAKER) (test code = 2801) Blood gas, [id number] 11:14:32 Test Item Value Reference Range Interpretation Comments pH, Timmy (test code = 7.39 7.32-7.42 2746-6) pCO2, Timmy (test code = 50 See_Comment [Aut omated message] 755) The system [employer] generated this result transmit jose a reference range : 41 - 51 mm Hg. The reference range was not used to interpret this result as normal/abnormal . pO2, Timmy (test code = <25 See_Comment L [Auto mated message] 2405-2) The system [employer] generated this result transmit jose a reference range : 25 - 40 mm Hg. The reference range was not used to interpret this result as normal/abnormal . O2 Sat, Timmy (test code 40.1 % 40.0-70.0 = 2711-0) HCO3, Timmy (test code = 30 mmol/L 21-29 H 78384-0) Base Excess, Timmy (test 3.3 mmol/L -2.0-3.0 H code = 1927-3) Patient Temperature 36.9 (test code = 8310-5) FIO2 (test code = 1819) 21 Lab Interpretation Abnormal (test code = 91708-1) [facility] [id number] 11:14:32 Test Item Value Reference Range Interpretation Comments PH VENOUS (BEAKER) (test code = 7.39 7.32-7.42 701) PCO2 VENOUS (BEAKER) (test code = 50 mm Hg 41-51 755) PO2 VENOUS (BEAKER) (test code = < mm Hg 25-40 L 702) O2 SATURATION VENOUS (BEAKER) 40.1 % 40.0-70.0 (test code = 703) HCO3 VENOUS (BEAKER) (test code = 30 mmol/L 21-29 H 705) BASE EXCESS VENOUS (BEAKER) (test 3.3 mmol/L -2.0-3.0 H code = 704) PATIENT TEMPERATURE (BEAKER) (test 36.9 code = 1818) FIO2 (BEAKER) (test code = 1819) 21.0 POCT HEMOGLOBIN [id number] 17:28:00 Test Item Value Reference Range Interpretation Comments HEMOGLOBIN A1C (test code = 4548-4) 8.1 % 4.0-5.6 A Lab Interpretation (test code = Abnormal 19848-1) [facility] [id number] 17:21:00 Test Item Value Reference Range Interpretation Comments BLOOD GLUCOSE, FASTING (test code = 1558-6) [facility]
[2022-03-25] MEDS ORDERED: ONDANSETRON 4 MG (ODT) TAB ONE (23:37)
[2022-03-25] MEDS ORDERED: NA CHLORIDE 0.9% 2,000 ML ONE (23:37)
[2022-03-25 23:45] LABS: Urine Blood Negative (Negative); Urine Glucose 3+ (Negative); Urine Protein Negative (Negative)
[2022-03-25 23:55] LABS: Absolute Lymphocytes (CBC) 2.1 K/uL (0.7-4.9); Hematocrit 45.8 % (36.0-45.0); Lymphocytes % 41.9 % (15.3-44.8); MPV 8.3 fL (7.6-11.3); RBC Red Blood Cell Count 5.04 M/uL (3.86-4.86)
[2022-03-26 00:14] LABS: ALT/SGPT 22 U/L (12-78); AST/SGOT 19 U/L (15-37); Alkaline Phosphatase 74 U/L (45-117); BUN Blood Urea Nitrogen 12 mg/dL (7-18); Bicarbonate 28 mmol/L (21-32); Bilirubin Total 1.4 mg/dL (0.2-1.0); Glomerular Filtration Rate 64 ml/min (=/>90); Lipase 122 U/L (73-393); Potassium 4.8 mmol/L (3.5-5.1); Protein, Total 7.8 g/dL (6.4-8.2); Sodium Level 129 mmol/L (136-145)
[2022-03-26 00:15] LABS: Glucose Level 609 mg/dL (74-106)
[2022-03-26 00:40] LABS: Urine Bacteria <20 /HPF (<20); Urine RBC NONE SEEN /HPF (NONE SEEN)
[2022-03-26] MEDS ORDERED: INSULIN -REGULAR HUMAN 50 UNIT/0.5 ML ML ONE ×2 (00:52→02:04)
[2022-03-26] MEDS ORDERED: NA CHLORIDE 0.9% 0 ML ONE (02:04)
--- NOTE | 2022-03-26 02:28 | EDPHYS ---
Physician Documentation [facility] Name: Amy Andrew Age: 21 yrs Sex: Female : 2000 Arrival Date: 03/25/2022 Time: 22:47 Bed 18 Private MD: ED Physician Humberto Rudd HPI: 03/25 23:25 This 21 yrs old Female presents to ER via Ambulatory with complaints of High Blood cp Sugar. 23:25 The patient or guardian reports hyperglycemia, that was potentially precipitated by no cp particular event. Onset: The symptoms/episode began/occurred today. Associated signs and symptoms: Pertinent positives: nausea, Pertinent negatives: constipation, vomiting, fever. Current symptoms: In the emergency department the patient's symptoms are unchanged from the initial presentation, despite increasing dose of insulin. 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 - Social history:: Smoking status: Patient denies any tobacco usage or history of. ROS: 23:30 Constitutional: Negative for body aches, chills, fever, poor PO intake. cp 23:30 Eyes: Negative for injury, pain, redness, and discharge. cp 23:30 ENT: Negative for drainage from ear(s), ear pain, sore throat, difficulty swallowing, difficulty handling secretions. 23:30 Cardiovascular: Negative for chest pain. 23:30 Respiratory: Negative for cough, shortness of breath, wheezing. 23:30 Abdomen/GI: Positive for nausea, Negative for abdominal pain, vomiting, diarrhea, constipation. 23:30 : Negative for urinary symptoms, vaginal bleeding. 23:30 Neuro: Negative for altered mental status, dizziness, headache, weakness. Exam: 23:35 Constitutional: The patient appears in no acute distress, alert, awake, non-toxic, well cp developed, well nourished. 23:35 Head/Face: Normocephalic, atraumatic. cp 23:35 Eyes: Periorbital structures: appear normal, Conjunctiva: normal, no exudate, no injection, Sclera: no appreciated abnormality, Lids and lashes: appear normal, bilaterally. 23:35 ENT: External ear(s): are unremarkable, Nose: is normal, Mouth: Lips: moist, Oral mucosa: moist, Posterior pharynx: Airway: no evidence of obstruction, patent. 23:35 Chest/axilla: Inspection: normal. 23:35 Cardiovascular: Rate: tachycardic, Rhythm: regular. 23:35 Respiratory: the patient does not display signs of respiratory distress, Respirations: normal, no use of accessory muscles, no retractions, labored breathing, is not present, Breath sounds: are clear throughout, no decreased breath sounds, no stridor, no wheezing. 23:35 Abdomen/GI: Inspection: abdomen appears normal, Palpation: abdomen is soft and non-tender, in all quadrants. 23:35 Back: pain, is absent, ROM is normal. 23:35 Neuro: Orientation: to person, place \T\ time. Mentation: is normal, Motor: moves all fours, strength is normal, Sensation: no obvious gross deficits, Gait: is steady. Vital Signs: 23:20 BP 118 / 82; Pulse 85; Resp 20; Temp 98.2; Pulse Ox 100% ; Weight 57.61 kg; Height 5 vc1 ft. 2 in. (157.48 cm); Pain 3/10; 03/26 00:56 BP 102 / 60; Pulse 114; Resp 18 S; Pulse Ox 100% on R/A; bb 01:20 BP 111 / 78; Pulse 85; Resp 16 S; Pulse Ox 100% on R/A; bb 03/25 23:20 Body Mass Index 23.23 (57.61 kg, 157.48 cm) vc1 MDM: 03/25 23:29 Patient medically screened. cp 23:40 Differential diagnosis: DKA, hyperglycemia, hyperthyroidism, hypoglycemic episode, cp thyroid storm. 03/26 02:26 Data reviewed: vital signs, nurses notes, lab test result(s), and as a result, I will rn admissions patient. Counseling: I had a detailed discussion with the patient and/or guardian regarding: the historical points, exam findings, and any diagnostic results supporting the discharge/admit diagnosis, lab results, the need for outpatient follow up, to return to the emergency department if symptoms worsen or persist or if there are any questions or concerns that arise at home. Response to treatment: the patient's symptoms have markedly improved after treatment, and as a result, I will discharge patient. Special discussion: I discussed with the patient/guardian in detail that at this point there is no indication for admission to the hospital. It is understood, however, that if the symptoms persist or worsen the patient needs to return immediately for re-evaluation. ED course: Pt feels much better, her monitor reading 340s, refuses more insulin, states wants to go home, and understands risks/benefits. Will dc home as no AG or acidosis present. . 03/25 23:21 Order name: CBC with Diff; Complete Time: 00:12 cp 03/26 00:12 Interpretation: Normal except: RBC 5.04; HCT 45.8; MCV 90.7. cp 03/25 23:21 Order name: CMP; Complete Time: 00:28 cp 03/25 23:21 Order name: Lipase; Complete Time: 00:28 cp 03/25 23:21 Order name: Urine Microscopic Only; Complete Time: 00:53 cp 03/25 23:21 Order name: Ketone, Serum; Complete Time: 00:28 cp 03/25 23:45 Order name: Urine Dipstick-Ancillary; Complete Time: 00:12 EDMS 03/26 00:13 Interpretation: Normal except: UGLUC 3+; UKET 2+. cp 03/25 23:45 Order name: Urine --Ancillary (enter results); Complete Time: 00:53 mw2 03/26 01:38 Order name: Glucose, Ancillary Testing; Complete Time: 02:01 EDMS 03/25 23:21 Order name: IV Saline Lock; Complete Time: 23:44 cp 03/25 23:21 Order name: Labs collected and sent; Complete Time: 23:44 cp 03/25 23:21 Order name: Urine Dipstick-Ancillary (obtain specimen); Complete Time: 23:44 cp 03/25 23:21 Order name: Urine Test (obtain specimen); Complete Time: 23:44 cp 03/26 01:32 Order name: Accucheck Blood Glucose; Complete Time: 01:35 cp Administered Medications: 03/25 23:44 Drug: NS 0.9% 1000 ml Route: IV; Rate: 1 bolus; Site: right antecubital; ld1 03/26 00:12 Follow up: IV Status: Completed infusion; IV Intake: 1000ml bb 03/25 23:44 Drug: Zofran (Ondansetron) 4 mg Route: IVP; Site: right antecubital; ld1 03/26 00:12 Drug: NS 0.9% 1000 ml Route: IV; Rate: 1 bolus; Site: right antecubital; bb 00:54 Follow up: IV Status: Completed infusion; IV Intake: 950ml bb 00:54 Drug: Insulin Regular Human 10 units {Co-Signature: lg3 (Michell Tripathi RN).} Route: IVP; bb Site: right antecubital; 02:40 Follow up: Response: Blood sugar is lowered bb 02:26 CANCELLED (Patient Refused): Insulin Regular Human 10 units Sub-Q once rn 02:28 Not Given (Patient Refused): Insulin Regular Human 10 units IVP once; if blood glucose bb >300 02:28 Not Given (Patient Refused): NS 0.9% 1000 ml IV at 1 bolus Per protocol; 1000 mL bolus, bb if blood glucose >300 Disposition: 04:09 Co-signature as Attending Physician, Humbetro Rudd MD. rn Disposition Summary: 03/26/22 02:27 Discharge Ordered Location: Home rn Problem: new rn Symptoms: have improved rn Condition: Stable rn Diagnosis - Hyperglycemia, unspecified rn - Dehydration rn Followup: rn - With: Private Physician - When: As needed - Reason: Recheck today's complaints, Re-evaluation by your physician Discharge Instructions: - Discharge Summary Sheet rn - Dehydration, Adult rn - Hyperglycemia rn - Blood Glucose Monitoring, Adult rn Forms: - Medication Reconciliation Form rn - Thank You Letter rn - Antibiotic aprn - Prescription Opioid Use rn - Work release form lp1 Signatures: Dispatcher [employer] EDMS Belem Denney RN RN bb Nieto, Roman, MD MD rn Attema, Lee, FNP-Alexandr JUÁREZP-Cla1 Yousuf Guthrie PA PA cp Dibbern, Lauren, RN RN ld1 Fadumo Stewart, RN RN vc1 Michell Tripathi RN lg3 Corrections: (The following items were deleted from the chart) 00:54 00:30 Abdomen Limited+US.RAD.BRZ ordered. EDMS EDMS 02:26 02:01 Insulin Regular Human 10 units Sub-Q once ordered. rn rn
--- NOTE | 2022-03-26 02:28 | ER ---
Nurse's Notes [facility] Name: Amy Andrew Age: 21 yrs Sex: Female : 2000 Arrival Date: 03/25/2022 Time: 22:47 Bed 18 Private MD: Diagnosis: Hyperglycemia, unspecified;Dehydration Presentation: 03/25 23:20 Chief complaint: Patient states: "At 7:43 my bgl was 522 I did 9.8 units an hour later vc1 is said HI the highest my pump will go is 600 so I did 7.3 additional units, 30 minutes later it was 587 then 30 minutes later it was 591 then right before I came here it was 585.". Coronavirus screen: Vaccine status: Patient reports being unvaccinated. At this time, the client does not indicate any symptoms associated with coronavirus-19. Ebola Screen: No symptoms or risks identified at this time. Initial Sepsis Screen: Does the patient meet any 2 criteria? No. Patient's initial sepsis screen is negative. Does the patient have a suspected source of infection? No. Patient's initial sepsis screen is negative. Risk Assessment: Do you want to hurt yourself or someone else? Patient reports no desire to harm self or others. Onset of symptoms was March 25, 2022. 23:20 Method Of Arrival: Ambulatory vc1 23:20 Acuity: UMU 3 vc1 Triage Assessment: 23:25 General: Appears in no apparent distress. uncomfortable, Behavior is calm, cooperative, vc1 appropriate for age. Pain: Complains of pain in bodyaches and a headache Pain does not radiate. Pain currently is 3 out of 10 on a pain scale. Neuro: Level of Consciousness is awake, obeys commands, lethargic, Oriented to person, place, time, situation, Appropriate for age. Cardiovascular: No deficits noted. Respiratory: No deficits noted. GI: Reports nausea. [employer]: 23:26 LMP N/A - Irregular menses vc1 Historical: - Allergies: 23:24 No Known Allergies; vc1 - Home Meds: 23:24 Insulin pump [Active]; levothyroxine 150 mcg tab 1 tab once daily [Active]; Novolog vc1 Flexpen 100 unit/mL subcutaneous inpn [Active]; - PMHx: 23:24 Diabetes - IDDM; Hypothyroidism; vc1 - Immunization history:: Adult Immunizations up to date. - Social history:: Smoking status: Patient denies any tobacco usage or history of. Screenin:26 Abuse screen: Denies threats or abuse. Nutritional screening: No deficits noted. vc1 Tuberculosis screening: No symptoms or risk factors identified. Fall Risk None identified. Assessment: 23:45 General: Appears in no apparent distress. Behavior is calm, cooperative. Neuro: Level bb of Consciousness is awake, alert, obeys commands, Oriented to person, place, time, situation. Cardiovascular: Capillary refill < 3 seconds Patient's skin is warm and dry. Respiratory: Respiratory effort is even, unlabored, Respiratory pattern is regular. GI: Abdomen is non-distended. Derm: Skin is pink, warm \\T\\ dry. Musculoskeletal: Circulation, motion, and sensation intact. 03/26 00:56 Reassessment: Patient is alert, oriented x 3, equal unlabored respirations, skin bb warm/dry/pink. IV site intact, patent with fluids infusing, family at bedside. 02:10 Reassessment: pt refused insulin administration states she knows what her body needs bb and her BGL is still coming down her meter registered 332. Dr Rudd notified awaiting new orders. 02:39 Reassessment: Patient and/or family updated on plan of care and expected duration. Pain bb level reassessed. pt verbalized understanding of and agrees to plan of care discharge instructions given pt ambulated with steady gait to exit accompanied by family. Vital Signs: 03/25 23:20 BP 118 / 82; Pulse 85; Resp 20; Temp 98.2; Pulse Ox 100% ; Weight 57.61 kg; Height 5 vc1 ft. 2 in. (157.48 cm); Pain 3/10; 03/26 00:56 BP 102 / 60; Pulse 114; Resp 18 S; Pulse Ox 100% on R/A; bb 01:20 BP 111 / 78; Pulse 85; Resp 16 S; Pulse Ox 100% on R/A; bb 03/25 23:20 Body Mass Index 23.23 (57.61 kg, 157.48 cm) vc1 ED Course: 03/25 22:47 Patient arrived in ED. ja2 23:03 Yousuf Guthrie PA is PHCP. cp 23:03 Humberto Rudd MD is Attending Physician. cp 23:24 Triage completed. vc1 23:26 Arm band placed on right wrist. vc1 23:33 Belem Denney, RN is Primary Nurse. bb 23:44 Urine Microscopic Only Sent. ld1 23:45 Patient has correct armband on for positive identification. bb 23:45 Inserted saline lock: 20 gauge in right antecubital area, using aseptic technique. ld1 Blood collected. 03/26 00:15 Notified ED physician of a critical lab result(s). Glucose 609. lp1 02:40 No provider procedures requiring assistance completed. IV discontinued, intact, bb bleeding controlled, No redness/swelling at site. Pressure dressing applied. Administered Medications: 03/25 23:44 Drug: NS 0.9% 1000 ml Route: IV; Rate: 1 bolus; Site: right antecubital; ld1 03/26 00:12 Follow up: IV Status: Completed infusion; IV Intake: 1000ml bb 03/25 23:44 Drug: Zofran (Ondansetron) 4 mg Route: IVP; Site: right antecubital; ld1 03/26 00:12 Drug: NS 0.9% 1000 ml Route: IV; Rate: 1 bolus; Site: right antecubital; bb 00:54 Follow up: IV Status: Completed infusion; IV Intake: 950ml bb 00:54 Drug: Insulin Regular Human 10 units {Co-Signature: lg3 (Michell Tripathi RN).} Route: IVP; bb Site: right antecubital; 02:40 Follow up: Response: Blood sugar is lowered bb 02:26 CANCELLED (Patient Refused): Insulin Regular Human 10 units Sub-Q once rn 02:28 Not Given (Patient Refused): Insulin Regular Human 10 units IVP once; if blood glucose bb >300 02:28 Not Given (Patient Refused): NS 0.9% 1000 ml IV at 1 bolus Per protocol; 1000 mL bolus, bb if blood glucose >300 Intake: 00:12 IV: 1000ml; Total: 1000ml. bb 00:54 IV: 950ml; Total: 1950ml. bb Outcome: 02:27 Discharge ordered by MD. rn 02:40 Discharged to home ambulatory, with family. bb 02:40 Condition: stable 02:40 Discharge instructions given to patient, Instructed on discharge instructions, follow up and referral plans. Demonstrated understanding of instructions, follow-up care. 02:40 Patient left the ED. bb Signatures: Belem Denney, RN RN bb Humberto Rudd MD MD rn Pena, Laura, RN RN lp1 Yousuf Guthrie PA PA cp Dibbern, Lauren, RN RN ld1 Donna Irving Vanessa, RN RN vc1 Michell Tripathi RN lg3
[2022-03-26 02:45] VITALS: TEMP 98.2; O2SAT 100
[2022-03-26 02:48] VITALS: BP 111/78
== END 2022-03-26 02:40 | disposition home or self-care (01) ==
LOC: ER 22:46
DX: E11.65 Type 2 diabetes mellitus with hyperglycemia (principal); E86.0 Dehydration; Z96.41 Presence of insulin pump (external) (internal); Z79.4 Long term (current) use of insulin; E03.9 Hypothyroidism, unspecified
CPT/HCPCS: 96361; 85025; 36415; 82010; 81025; 82947; 83690; 80053; 96375; 96374; 99283; J1815 ×2; J7030; 81003; 81015

== ENCOUNTER 2022-03-26 06:24 | Emergency (ER) | payer BC ==
--- OUTSIDE RECORDS SUMMARY | 2022-03-26 06:28 | XMS REPORT | Continuity of Care Document ---
:2000 Author Organization [facility] t Address [address] [place] [address] Care Team Providers Name Role Phone Pcp Primary Care Physician Unavailable MARCEL BAHENA Attending Clinician Unavailable Marcel Bahena MD Attending Clinician EMILIANA Attending Clinician Unavailable Emiliana CROSS Attending Clinician Alan SUERO Attending Clinician Unavailable Therapy, Covid Infusion Attending Clinician Unavailable Alan Suero MD Attending Clinician Doctor Unassigned, Name Attending Clinician Unavailable Naveen CROSS Attending Clinician Payers Payer Name Policy Type Policy Number Effective Date Expiration Date S ource PPO/EPO - BCBS [id number] BCBS PPO POS EPO [id number] 2018 00:00:00 CHOICE Problems Condition Condition Condition Status Onset Resolution Last Treating Co mments Source Name Details Category Date Date Treatment Clinician Date Tension Tension Disease Active Univers type type 07-10 ity of headache headache 00:00: [place] [address] Medical Branch Allergic Allergic Disease Active Unive rs rhinitis rhinitis 07-10 ity of 00:00: [place] [address] Medical Branch Type 1 Type 1 Disease Active Overview: Univer s diabetes diabetes 07-04 Formattin ity of mellitus mellitus 00:00: g of this Nader as 00 note Medical might be Branch different from the original. Diagnosed at age 1.5 years. Has insulin pump. Followed by [facility] Endocrino logy - Dr. Suero Functional Functional [...] Takes Levothyro teresita, followed by Dr. Suero - [facility] Endocrine Dysmenorrh Dysmenorrh Disease Active 2011-10 U gissel ea ea 06 ity of 00:00: [place] [facility] Lymphocyti Lymphocyti Disease Active U gissel grubbs 06-28 [place] of thyroid[place] No known No known Disease [facility] active active [place] problems problems of Medicin e Allergies, Adverse [...] Univers INGREDI 07-04 ity of 00:00: [place] 00 Medical Branch NO KNOWN Allergy Active [facility] Social History Social Habit Start Date Stop Date Quantity Comments Source History SDOH [facility] Alcohol Std Drinks [facility]ica [facility] Center History SDOH [facility] Alcohol Binge Medical Roxi ter History SDOH [facility] Alcohol Comment Medical C enter Exposure to Not sure [facility] SARS-CoV-2 (event) Medica Center Tobacco use and 2021-11-17 2021-11-[address] [facility] exposure 00:00:00 00:00:00 [facility] Alcohol intake 2021-11-17 2021-11-[address] [facility] 00:00:00 00:00:00 non-drinker Medical Cente r (finding) History SDOH 2021-11-17 2021-11-[address] [facility] Alcohol Frequency 00:00:00 00:00:00 [facility] Center Sex Assigned At [address] [address] [facility] 00:00:00 00:00:00 [facility] Center Smoking Status Start Date Stop Date Source Never smoked tobacco [facility] ege of Medicine Medications Ordered Filled Start Stop Current Ordering Indication Dosage Frequency Signature Comments Components Source Medication Medication Date Date Medication? Clinician (SIG) Name Name spironolact Yes 50mg Take 50 mg [facility] one 4-11 by mouth [place] (ALDACTONE) 11:00: daily. of 50 MG 48 Medicin tablet e spironolact Yes 50mg Take 50 mg [facility] one 2-28 by mouth [place] (ALDACTONE) 11:30: daily. of 50 MG 30 Medicin tablet e levothyroxi Yes 125ug Take 1 [place] don[place] ne 2-22 Tablet by [place] (SYNTHROID) 00:00: mouth of 125 MCG 00 daily. Medicin tablet e Continuous Yes Change [facility] Blood Gluc 2-22 every 2 Colleg e Sensor 00:00: weeks of (FREESTYLE 00 Medicin NOAH 2 e SENSOR) MISC levothyroxi Yes 125ug Take 1 [place] don[place] ne 2-22 Tablet by [place] (SYNTHROID) 00:00: mouth of 125 MCG 00 daily. Medicin tablet e Continuous Yes Change [facility] Blood Gluc 2-22 every 2 Colleg e Sensor 00:00: weeks of (FREESTYLE 00 Medicin NOAH 2 e SENSOR) [facility] insulin Yes Inject [facility] 10:49: usly 3 Medical (NovoLOG) 18 (three) Center 100 unit/mL times injection daily before meals. levothyroxi Yes 137ug Take [address] ne 1-[address] [facility] (SYNTHROID, 10:49: mouth Medic al LEVOTHROID) 18 Every Center 137 MCG morning on tablet an empty stomach. spironolact Yes 50mg Take 50 mg [facility] one 11-17 by mouth [place] (ALDACTONE) 09:20: daily. of 50 MG 52 Medicin tablet e doxycycline 2021- No 50mg Take 50 mg [facility] (VIBRAMYCIN 11-17 by mouth Col lege ) 50 MG 09:20: 00:00 daily. of capsule 33 :00 Medicin e ondansetron 2021- No 4mg Take [address] (ZOFRAN) 4 11-1707 tablet (4 Jenifer es MG tablet 00:00: 23:59 mg total) Me dical 00 :00 by mouth Center every 6 (six) hours for 7 days. levothyroxi Yes TAKE 1 [facility] ne 1-21 TABLET BY [place] (SYNTHROID) 00:00: MOUTH of 137 MCG 00 EVERY DAY Medicin tablet e doxycycline 2020-10 Yes 50mg Take 50 mg [facility] (VIBRAMYCIN 10-25 by mouth [place] ege ) 50 MG 11:13: daily. of capsule 34 Medicin e insulin 2020-10 Yes [id number] Inject [facility] aspart 10-25 [facility] (NOVOLOG) 00:00: usly a MAX of 100 UNIT/ML 00 dose of 45 Me dicin injection units a e day via insulin pump. 90 day supply Insulin 2020-10 Yes [id number] Inject [facility] Glargine 10-25 [facility] (BASAGLAR 00:00: usly a MAX of KWIKPEN) 00 dose of 16 Medic in 100 UNIT/ML units a e SOPN day in case of pump failure. Insulin Pen 2020-10 Yes [id number] Use with [facility] Needle (BD 10-25 insulin Colleg e PEN NEEDLE 00:00: pen at of [place] U/F) 00 least five Medi jorge 32G X 4 MM times a e MISC day in case of pump failure. Acetone, 2020-10 Yes [id number] check [facility] Urine, Test 10-25 urine College STRP 00:00: ketones if of 00 BG >300 Medicin mg/dL or e during illness BAQSIMI TWO 2020-10 Yes [id number] 1{each} 1 Each by [facility] PACK 3 10-25 91 Nasal College MG/DOSE 00:00: route as of needed Medicin (for e severe hypoglycem ia). Glucose 2020-10 Yes [id number] Check Ba or Blood 10-[address] [facility] blood [place] Strips 00:00: sugars 6 of (CONTOUR 00 times a Medicin NEXT TEST) day. 90 e day supply. Dx Code: E 10.65 ONE TOUCH 2020-10 Yes [id number] Check BG 6 [facility] ULTRASOFT 10-25 times [facility] LANCETS 00:00: day. 90 of MISC 00 day Medicin supply. e insulin 2020-10 Yes [id number] Inject [facility] aspart 10-25 [facility] (NOVOLOG) 00:00: usly a MAX of 100 UNIT/ML 00 dose of 45 Me dicin injection units a e day via insulin pump. 90 day supply Insulin 2020-10 Yes [id number] Inject [facility] Glargine 10-25 [facility] (BASAGLAR 00:00: usly a MAX of KWIKPEN) 00 dose of 16 Medic in 100 UNIT/ML units a e SOPN day in case of pump failure. Insulin Pen 2020-10 Yes [id number] Use with [facility] Needle (BD 10-25 insulin Colleg e PEN NEEDLE 00:00: pen at of [place] U/F) 00 least five Medi jorge 32G X 4 MM times a e MISC day in case of pump failure. Acetone, 2020-10 Yes [id number] check [facility] Urine, Test 10-25 urine [place] STRP 00:00: ketones if of 00 BG >300 Medicin mg/dL or e during illness BAQSIMI TWO 2020-10 Yes [id number] 1{each} 1 Each by [facility] PACK 3 10-25 Nasal College MG/DOSE 00:00: route as of POWD 00 needed Medicin (for e severe hypoglycem ia). Glucose 2020-10 Yes [id number] Check [facility] Blood 10-25 blood College Strips 00:00: sugars 6 of (CONTOUR 00 times a Medicin NEXT TEST) day. 90 e day supply. Dx Code: E 10 ONE TOUCH 2020-10 Yes [id number] Check BG 6 [facility] ULTRASOFT 10-25 times a [place] LANCETS 00:00: day. 90 of MISC 00 day Medicin supply. e insulin 2020-10 Yes [id number] In[facility] 00:00: usly a MAX of 100 UNIT/ML 00 dose of 45 Me dicin injection units a e day via insulin pump. 90 day supply Insulin 2020-10 Yes [id number] [facility] ([facility] 00:00: usly a MAX of KWIKPEN) 00 dose of 16 Medic in 100 UNIT/ML units a e SOPN day in case of pump failure. Insulin Pen 2020-10 Yes [id number] Use with [facility] Needle (BD 10-25 insulin Colleg e PEN NEEDLE 00:00: pen at of [place] U/F) 00 least five Medi jorge 32G X 4 MM times a e MISC day in case of pump failure. Acetone, 2020-10 Yes [id number] check B [facility] Urine, Test 10-25 urine College STRP 00:00: ketones if of 00 BG >300 Medicin mg/dL or e during illness BAQSIMI TWO 2020-10 Yes [id number] 1{each} 1 Each by [facility] PACK 3 10-25 Nasal College MG/DOSE 00:00: route as of POWD 00 needed Medicin (for e severe hypoglycem ia). Glucose 2020-10 Yes [id number] Check [facility] Blood 10-25 blood College Strips 00:00: sugars 6 of (CONTOUR 00 times a Medicin NEXT TEST) day. 90 e day supply. Dx Code: E 10.65 ONE TOUCH 2020-10 Yes [id number] Check BG 6 [facility] ULTRASOFT 10-25 9101 times a [place] LANCETS 00:00: day. 90 of [facility] 00 day Medicin supply. e casirivimab 2020- No [id number] 1200mg Univers -imdevimab 05-22 ity of (REGEN-COV 14:30: 14:34 [place] (EUA)) 00 :00 Medical 1,200 mg in Branch NaCl 0.9% (NS) 60 mL IV infusion casirivimab 2020- No [id number] 1200mg 1,200 mg, Univers -imdevimab 05-22 IV ity of (REGEN-COV 14:30: 14:34 [place], [place] (EUA[place] 00 :00 ONCE, [facility] 1,200 mg in 05/22/21 at [facility] NaCl 0.9% 0930, For (NS) 60 mL 1 IV infusion dose
Ad flexible babysitter as an IV infusion via pump or gravity over at least 60 minutes through an intravenou s line containing a sterile, in-line or add-on 0.2-micron polyethers ulfone (PES) filter.&nb sp;Stable 36 hours refrigerat ed; 4 hours at room temperatur e. &nbs p;
levothyroxi Yes Take one [facility] ne 7-23 tablet by [place] (SYNTHROID) 00:00: mouth of 137 MCG 00 daily. Medicin tablet e THYROID OR 2019-10 Yes 175ug Take 175 [facility] 2-01 mcg by [place] 20:09: mouth of 52 daily. Medicin e doxycycline 2019-10 Yes 50mg Take 50 mg [facility] (VIBRAMYCIN 2-01 by mouth [place] ege ) 50 MG 20:09: daily. of capsule 52 Medicin e THYROID OR 2019-10 Yes 175ug Take 175 [facility] 2-01 mcg by [place] 20:09: mouth of 52 daily. Medicin e doxycycline 2019-10 Yes 50mg Take 50 mg [facility] (VIBRAMYCIN 2-01 by mouth [place] ege ) [...] capsule 00 Medicin e Glucose 2020-0 Yes [id number] Check [facility] Blood 5-20 9101 blood College Strips 00:00: sugars 10 of (CONTOUR 00 times a Medicin NEXT TEST) day Dx e Code: E 10.65 Glucose 2020-0 Yes [id number] Check [facility] Blood 5-20 9101 blood College Strips 00:00: sugars 10 of (CONTOUR 00 times a Medicin NEXT TEST) day Dx e Code: E 10.65 Glucose 2020-0 Yes [id number] Check [facility] Blood 5-20 9101 blood College Strips 00:00: sugars 10 of (CONTOUR 00 times a Medicin NEXT TEST) day Dx e Code: E 10.65 Insulin Yes upt to 35 [facility] Glargine 3-19 units [place] 100 UNIT/ML 00:00: subcut a of SOPN 00 day in the Medicin event of e insulin pump failure Insulin Yes upt to 35 [facility] Glargine 3-19 units [place] 100 UNIT/ML 00:00: subcut a of SOPN day in the Medicin event of e insulin pump failure Insulin Yes upt to 35 [facility] Glargine 3-19 units [place] 100 UNIT/ML 00:00: subcut a of SOPN day in the Medicin event of e insulin pump failure THYROID OR Yes 175ug Take 175 [facility] 1-31 mcg by College 22:06: mouth of 46 daily. Medicin e doxycycline Yes 50mg Take 50 mg [facility] (VIBRAMYCIN 1-31 by mouth [place] ege ) 50 MG 22:06: daily. of capsule 46 Medicin e Glucagon, Yes Inject IM [place] don[place] rDNA, 6-26 1 mg for College (GLUCAGON 00:00: severe of EMERGENCY) 00 hypoglycem Med icin 1 MG KIT ia (BG e <70) PRN. Glucagon, Yes Inject IM [place] donna rDNA, 6-26 1 mg for College (GLUCAGON 00:00: severe of EMERGENCY) 00 hypoglycem Med icin 1 MG KIT ia (BG e <70) PRN. Glucagon, Yes Inject IM [place] donna rDNA, 6-26 1 mg for College (GLUCAGON 00:00: severe of EMERGENCY) 00 hypoglycem Med icin 1 MG KIT ia (BG e <70) PRN. Glucagon, Yes Inject IM [place] donna rDNA, 1 MG 6-26 1 mg for Colle ge KIT 00:00: severe of 00 hypoglycem Medicin ia (BG e <70) PRN. Glucose Yes Testing up [facility] Blood 03-09 to 10 College Strips 00:00: times per of (CONTOUR 00 day for Medicin NEXT TEST) blood e [...] 30 mg 23 Medical capsule Branch lansoprazol Yes 30mg Take 30 mg Univers e 1-27 by mouth ity of (PREVACID) 20:11: daily. [place] 30 mg 23 Medical capsule Branch benzoyl Yes [id number] Use Univer s peroxide 10 1-04 topical ity o f % external 00:00: daily with [place] wash 00 shower to Medical affected Branch area. benzoyl Yes [id number] Use Univer s peroxide 10 1-04 topical ity o f % external 00:00: daily with [place] wash 00 shower to Medical affected Branch area. ONE TOUCH 2015-10 Yes 1{each} 1 Each. [facility] LANCETS 0-18 [facility] 00:00: of 00 Medicin e ONE TOUCH 2015-10 Yes 1{each} 1 Each. [facility] LANCETS 0-18 [facility] 00:00: of 00 Medicin e ONE TOUCH 2015-10 Yes 1{each} 1 Each. [facility] LANCETS 0-18 [facility] 00:00: of 00 Medicin e ONE TOUCH 2015-10 Yes 1{each} 1 Each. [facility] LANCETS 0-18 [facility] 00:00: of 00 Medicin e levothyroxi 2015- Yes [id number] 175ug Take 1 Univers ne 9-21 tablet by ity of (SYNTHROID) 00:00: mouth [place] 175 mcg 00 every Medical tablet morning. Branch ibuprofen Yes [id number] 800mg Take 1 Univers (MOTRIN) 9-21 tablet by ity of 800 mg 00:00: mouth [place] tablet 00 every 6 Medical (six) Branch hours as needed for Pain (scale 4-6). levothyroxi 2015- Yes [id number] 175ug Take 1 Univers ne 9-21 tablet by ity of (SYNTHROID) 00:00: mouth [place] 175 mcg 00 every Medical tablet morning. Branch ibuprofen Yes [id number] 800mg Take 1 Univers (MOTRIN) 9-21 tablet [...] per Branch tablet insulin Yes USE VIA [facility] aspart 2-22 INSULIN [place] (NOVOLOG) 00:00: PUMP UP TO of 100 UNIT/ML 00 100 UNITS Med icin injection PER DAY e insulin Yes USE VIA [facility] aspart 2-22 INSULIN [place] (NOVOLOG) 00:00: PUMP UP TO of 100 UNIT/ML 00 100 UNITS Med icin injection PER DAY e insulin Yes USE VIA [facility] aspart 2-22 INSULIN [place] (NOVOLOG) 00:00: PUMP UP TO of 100 UNIT/ML 00 100 UNITS Med icin injection PER DAY e insulin Yes USE VIA [facility] aspart 2-22 INSULIN [place] (NOVOLOG) 00:00: PUMP UP TO of 100 UNIT/ML 00 100 UNITS Med icin injection PER DAY e NOVOLOG 100 Yes By insulin Univers unit/mL 2-22 pump ity of solution 00:00: [place] 00 Medical Branch NOVOLOG 100 Yes By insulin Univers unit/mL 2-22 pump ity of solution 00:00: [place] [facility] Immunizations Ordered Immunization Filled Date Status Comments Sour ce Name Immunization Name Influenza Quad-PF 2021-05-18 Completed [facility] 00:00:00 of Medicine Influenza Quad-PF 2021-05-18 Completed [facility] 00:00:00 of Medicine Influenza Quad-PF 2021-05-18 Completed [facility] 00:00:00 of Medicine Influenza Quad-PF 2021-05-18 Completed [facility] 00:00:00 of Medicine HPV 2015-02-27 Completed University of 00:00:00 [facility] Meningococcal 2015-02-27 Completed University of Polysaccharide (groups 00:00:00 [place] [facility] A, C, Y and W-135) Branch conjugate vaccine (MCV4P) HPV 2015-02-27 Completed University of 00:00:00 [facility] Meningococcal 2015-02-27 Completed University of Polysaccharide (groups 00:00:00 [place] A, C, Y and W-135) Branch conjugate vaccine (MCV4P) Meningococcal 2013-06-08 Completed University of Oligosaccharide 00:00:00 [place] Med ical (groups A, C, Y and Branc h W-135) conjugate vaccine (MCV4O) Meningococcal 2013-06-08 Completed University of Oligosaccharide 00:00:00 [place] Med ical (groups A, C, Y and Branc h W-135) conjugate vaccine (MCV4O) Meningococcal 2012-06-15 Completed University of Polysaccharide (groups 00:00:00 [place] A, C, Y and W-135) Branch conjugate vaccine (MCV4P) TDAP 2012-06-15 Completed University of 00:00:00 [facility] Meningococcal 2012-06-15 Completed University of Polysaccharide (groups 00:00:00 [place] A, C, Y and W-135) Branch conjugate vaccine (MCV4P) TDAP 2012-06-15 Completed University of 00:00:00 [facility] MMR 2007-02-08 Completed University of 00:00:00 [facility] Varicella 2007-02-08 Completed University of (varivax)(chicken pox) 00:00:00 [facility] DTAP 2007-02-08 Completed University of 00:00:00 [facility] IPV 2007-02-08 Completed University of 00:00:00 [facility] MMR 2007-02-08 Completed University of 00:00:00 [facility] Varicella 2007-02-08 Completed University of (varivax)(chicken pox) 00:00:00 [facility] DTAP 2007-02-08 Completed University of 00:00:00 [facility] IPV 2007-02-08 Completed University of 00:00:00 [facility] Varicella 2006-06-25 Completed University of (varivax)(chicken pox) 00:00:00 [facility] Branch Varicella 2006-06-25 Completed University of (varivax)(chicken pox) 00:00:00 [facility] DTAP 2000-05-20 Completed University of 00:00:00 [facility] HIB 4 Dose Schedule 2000-05-20 Completed Unive rsity of 00:00:00 [facility] MMR 2000-05-20 Completed University of 00:00:00 [place] [facility] Branch DTAP 2000-05-20 Completed University of 00:00:00 [facility] HIB 4 Dose Schedule 2000-05-20 Completed Unive rsity of 00:00:00 [facility] MMR 2000-05-20 Completed University of 00:00:00 [facility] DTAP 1999-12-18 Completed University of 00:00:00 [facility] Hep B, Adol or Pedi 1999-12-18 Completed Unive rsity of Dosage 00:00:00 [facility] HIB 4 Dose Schedule 1999-12-18 Completed Unive rsity of 00:00:00 [facility] IPV 1999-12-18 Completed University of 00:00:00 [facility] DTAP 1999-12-18 Completed University of 00:00:00 [facility] Hep B, Adol or Pedi 1999-12-18 Completed Unive rsity of Dosage 00:00:00 [facility] HIB 4 Dose Schedule 1999-12-18 Completed Unive rsity of 00:00:00 [facility] IPV 1999-12-18 Completed University of 00:00:00 [place] [facility] DTAP 1999-04-28 Completed University of 00:00:00 [place] [facility] Joice HIB 4 Dose Schedule 1999-04-28 Completed Unive rsity of 00:00:00 [place] [facility] IPV 1999-04-28 Completed University of 00:00:00 [place] [facility] DTAP 1999-04-28 Completed University of 00:00:00 [facility] HIB 4 Dose Schedule 1999-04-28 Completed Unive rsity of 00:00:00 [facility] Branch IPV 1999-04-28 Completed University of 00:00:00 [facility] Branch DTAP 1999-01-20 Completed University of 00:00:00 [facility] Hep B, Adol or Pedi 1999-01-20 Completed Unive rsity of Dosage 00:00:00 [facility] HIB 4 Dose Schedule 1999-01-20 Completed Unive rsity of 00:00:00 [facility] IPV 1999-01-20 Completed University of 00:00:00 [facility] DTAP 1999-01-20 Completed University of 00:00:00 [facility] Hep B, Adol or Pedi 1999-01-20 Completed Unive rsity of Dosage 00:00:00 [facility] HIB 4 Dose Schedule 1999-01-20 Completed Unive rsity of 00:00:00 [facility] IPV 1999-01-20 Completed University of 00:00:00 [facility] Hep B, Adol or Pedi 2000 Completed Unive rsity of Dosage 00:00:00 [facility] Hep B, Adol or Pedi 1998 Completed Unive rsity of Dosage 00:00:00 [facility] Vital Signs Vital Name Observation Time Observation Value Comments Source Systolic blood 2022-01-26 15:54:00 118 mm[Hg] [facility] pressure Medicine Diastolic blood 2022-01-26 15:54:00 80 mm[Hg] [facility] Medicine Heart rate 2022-01-26 15:54:00 98 /min [facility] Body height 2022-01-26 15:54:[address] [facility] Body weight 2022-01-26 15:54:[address] [facility] BMI 2022-01-26 15:54:00 25.13 kg/m2 [facility] Systolic blood 2021-12-15 17:30:00 100 mm[Hg] [facility] pressure Medicine Diastolic blood 2021-12-15 17:30:00 70 mm[Hg] [facility] pressure Medicine Heart rate 2021-12-15 17:30:00 99 /min [facility] Body height 2021-12-15 17:30:[address] [facility] Body weight 2021-12-15 17:30:[address] [facility] BMI 2021-12-15 17:30:00 24.19 kg/m2 [facility] of Medicine Systolic blood 2021-11-17 15:21:00 108 mm[Hg] [facility] pressure Medicine Diastolic blood 2021-11-17 15:21:00 72 mm[Hg] [facility] Medicine Heart rate 2021-11-17 15:21:00 111 /min [facility] of Medicine Body height 2021-11-17 15:21:00 154.9 cm [facility] of Medicine Body weight 2021-11-17 15:21:00 56.7 kg [facility] of Medicine BMI 2021-11-17 15:21:00 23.62 kg/m2 [facility] of Medicine HEIGHT 2021-11-17 10:44:00 157.5 cm WEIGHT 2021-11-17 10:44:00 59.8 kg HEIGHT 2021-11-17 10:44:00 157.5 cm WEIGHT 2021-11-17 10:44:00 59.8 kg Systolic blood 2021-08-25 17:14:00 102 mm[Hg] [facility] pressure Medicine Diastolic blood 2021-08-25 17:14:00 70 mm[Hg] [facility] Medicine Heart rate 2021-08-25 17:14:00 96 /min [facility] ol[facility] of Medicine Body height 2021-08-25 17:14:00 154.9 cm [facility] Medicine Body weight 2021-08-25 17:14:00 58.06 kg [facility] Medicine BMI 2021-08-25 17:14:00 24.19 kg/m2 [facility] Medicine Systolic blood 2021-05-22 15:35:00 106 mm[Hg] Univer sity of pressure [facility] Diastolic blood 2021-05-22 15:35:00 80 mm[Hg] Unive rsity of pressure [facility] Heart rate 2021-05-22 15:35:00 74 /min [facility] Body temperature 2021-05-22 15:35:00 36.28 Lani Univ ersity of [facility] Respiratory rate 2021-05-22 15:35:00 18 /min [facility] Oxygen saturation in 2021-05-22 15:35:00 99 /min [facility] Arterial blood by [facility] Pulse oximetry Branch Body height 2021-05-22 13:25:00 154[facility]9 cm [facility] Body weight 2021-05-22 13:25:00 54.432 kg [facility] BMI 2021-05-22 13:25:00 22.67 kg/m2 [facility] Systolic blood 2020-09-17 20:05:00 92 mm[Hg] [facility] pressure Medicine Diastolic blood 2020-09-17 20:05:00 64 mm[Hg] [facility] Medicine Heart rate 2020-09-17 20:05:00 93 /min [facility] Respiratory rate 2020-09-17 20:05:00 16 /min [facility] Body height 2020-09-17 20:05:00 154.9 cm [facility] Body weight 2020-09-17 20:05:00 53.524 kg [facility] BMI 2020-09-17 20:05:00 22.30 kg/m2 [facility] Medicine Systolic blood 2019-11-17 21:59:00 92 mm[Hg] [facility] Medicine Diastolic blood 2019-11-17 21:59:00 68 mm[Hg] [facility] Medicine Heart rate 2019-11-17 21:59:00 73 /min [facility] Medicine Respiratory rate 2019-11-17 21:59:00 16 /min [facility] Body height 2019-11-17 21:59:00 154.9 cm [facility] Body weight 2019-11-17 21:59:00 54.432 kg [facility] BMI 2019-11-17 21:59:00 22.67 kg/m2 [facility] Medicine Systolic blood 2021-11-17 12:50:00 121 mm[Hg] [facility] Diastolic blood 2021-11-17 12:50:00 74 mm[Hg] [facility] Heart rate 2021-11-17 12:50:00 86 /min [facility] Respiratory rate 2021-11-17 12:50:00 18 /min [facility] Oxygen saturation in 2021-11-17 12:50:00 99 /min [facility] Arterial blood by Medical Ce nter Pulse oximetry Body temperature 2021-11-17 10:44:00 36.94 Lani [facility] Body height 2021-11-17 10:44:00 157.5 cm [facility] Body weight 2021-11-17 10:44:00 59.8 kg [facility] BMI 2021-11-17 10:44:00 24.11 kg/m2 [facility] Procedures Procedure Date / Time Performing Clinician Source Performed POCT HEMOGLOBIN A1C 2022-01-26 16:07:00 Kassidy Bahena [facility] POCT REAGENT STP/BLD 2022-01-26 16:07:00 Kassidy Bahena [facility] POCT REAGENT STP/BLD 2021-12-15 17:37:00 Kassidy Bahena [facility] POCT HEMOGLOBIN A1C 2021-11-17 15:28:00 Kassidy Bahena [facility] KETONES QUAL 2021-11-17 15:28:00 Kassidy Bahena [facility] POCT REAGENT STP/BLD 2021-11-17 15:28:00 Kassidy Bahena [facility] URINALYSIS W/ REFLEX 2021-11-17 12:24:00 Lexii Benz [facility] URINE CULTURE Center SCREEN, URINE 2021-11-17 12:24:00 Lexii Benz I [facility] ECG 12-LEAD 2021-11-17 12:17:21 Unknown, Hl7 Doctor [facility] ECG 12-LEAD 2021-11-17 12:17:21 Unknown, Hl7 Doctor [facility] TSH/FREE T4 IF INDICATED 2021-11-17 11:14:00 Renate Benzn [facility] T4, FREE 2021-11-17 11:14:00 Lexii Benz [facility] COMPREHENSIVE METABOLIC 2021-11-17 11:12:00 Renate Benzevangelista [facility] PANEL Center CBC W/PLT COUNT & AUTO 2021-11-17 11:12:00 EmilianaRenate ramosevangelista [facility] DIFFERENTIAL Center KETONE, BLOOD 2021-11-17 11:12:00 Lexii Benz [facility] CBC W/PLT COUNT & AUTO 2021-11-17 11:12:00 Renate Benzevangelista [facility] DIFFERENTIAL [place] BLOOD GAS, VENOUS 2021-11-17 11:05:00 Lexii Benz [facility] POCT HEMOGLOBIN A1C 2021-08-25 17:22:00 Kassidy Bahena [facility] POCT REAGENT STP/BLD 2021-08-25 17:21:00 Kassidy Bahena [facility] Medicine IMMTRAC2 CONSENT 2021-05-22 05:01:00 Doctor Unassigned, No [facility] Plan of Care Planned Activity Planned Date Details Comments Source Future Scheduled 2022-06-15 DTAP/TDAP/TD VACCINES [facility] Test 00:00:00 (7 - Td or Tdap) [code Medic pr Center = DTAP/TDAP/TD VACCINES (7 - Td or Tdap)] Future Scheduled 2022-01-27 COVID-19 Vaccine (1) [facility] Test 09: [code = COVID-19 of Medicine Vaccine (1)] Future Scheduled 2022-01-27 HPV VACCINE (2 - 3-dose [facility] Test 09:11:31 series) [code = HPV of Medic ine VACCINE (2 - 3-dose series)] Future Scheduled 2022-01-27 BMI FOLLOW UP PLAN [facility] Test 09:11:31 [code = BMI FOLLOW UP of Med icine PLAN] Future Scheduled 2022-01-27 Hepatitis C screening [facility] Test 09:11:31 (procedure) [code = of Medic ine 947635613] Future Scheduled 2022-01-27 Human immunodeficiency B [facility] Test 09:11:31 virus screening of Medicine (procedure) [code = 767014972] Future Scheduled 2022-01-27 Screening for malignant [facility] Test 09:11:31 neoplasm of cervix of Medici ne (procedure) [code = 711269250] Future Scheduled 2022-01-27 Diabetic foot [facility] Test 09:11:31 examination of Medicine (regime/therapy) [code = 828230263] Future Scheduled 2022-01-27 ANNUAL DIABETIC [facility] Test 09:11:31 RETINOPATHY SCREENING of Med icine [code = ANNUAL DIABETIC RETINOPATHY SCREENING] Future Scheduled 2022-01-27 FLU VACCINE > 6 MONTHS B [facility] Test 09:11:31 [code = FLU VACCINE > 6 of M edicine MONTHS] Future Scheduled 2022-01-27 TETANUS SHOT (ADULT) [facility] Test 09:11:31 [code = TETANUS SHOT of Medi cine (ADULT)] Future Scheduled 2022-01-27 Hemoglobin A1c [facility] Test 09:11:31 measurement (procedure) of M edicine [code = 84044857] Future Scheduled 2022-01-26 COMPREHENSIVE METABOLIC Ordered: [facility] Test 11:40:43 PANEL [code = 80371-0] 01/26/2022 of Me dicine Future Scheduled 2022-01-26 TSH [code = 20559-6] Ordered: [facility] Test 11:39:36 01/26/2022 of Medicine Future Scheduled 2022-01-26 T4 FREE [code = 3024-7] Ordered: [facility] Test 11:39:36 01/26/2022 of Medicine Future Scheduled 2021-12-15 COVID-19 Vaccine (1) [facility] Test 11:40:19 [code = COVID-19 of Medicine Vaccine (1)] Future Scheduled 2021-12-15 HPV VACCINE (2 - 3-dose [facility] Test 11:40:19 series) [code = HPV of Medic ine VACCINE (2 - 3-dose series)] Future Scheduled 2021-12-15 Hepatitis C screening [facility] Test 11:40:19 (procedure) [code = of Medic ine 299727516] Future Scheduled 2021-12-15 Human immunodeficiency B [facility] Test 11:40:19 virus screening of Medicine (procedure) [code = 923260176] Future Scheduled 2021-12-15 Screening for malignant [facility] Test 11:40:19 neoplasm of cervix of Medici ne (procedure) [code = 433663485] Future Scheduled 2021-12-15 Diabetic foot [facility] Test 11:40:19 examination of Medicine (regime/therapy) [code = 622070129] Future Scheduled 2021-12-15 ANNUAL DIABETIC [facility] Test 11:40:19 RETINOPATHY SCREENING of Med icine [code = ANNUAL DIABETIC RETINOPATHY SCREENING] Future Scheduled 2021-12-15 Hemoglobin A1c [facility] Test 11:40:19 measurement (procedure) of M edicine [code = 64283998] Future Scheduled 2021-12-15 TETANUS SHOT (ADULT) [facility] Test 11:40:19 [code = TETANUS SHOT of Medi cine (ADULT)] Future Scheduled 2021-11-17 ANNUAL DIABETIC [facility] Test 09:58:49 RETINOPATHY SCREENING of Med icine [code = ANNUAL DIABETIC RETINOPATHY SCREENING] Future Scheduled 2021-11-17 IRIS EXAM [code = Ordered: [facility] Test 09:58:47 83643] 11/17/2021 of Medicine Future Scheduled 2021-11-17 TSH [code = 27463-4] Ordered: [facility] Test 09:58:26 11/17/2021 of Medicine Future Scheduled 2021-11-17 T4 FREE [code = 3024-7] Ordered: [facility] Test 09:58:26 11/17/2021 of Medicine Future Scheduled 2021-11-17 Hemoglobin A1c [facility] Test 09:35:14 measurement (procedure) of M edicine [code = 37713864] Future Scheduled 2021-11-17 COVID-19 Vaccine (1) [facility] Test 09:20:56 [code = COVID-19 of Medicine Vaccine (1)] Future Scheduled 2021-11-17 HPV VACCINE (2 - 3-dose [facility] Test 09:20:56 series) [code = HPV of Medic ine VACCINE (2 - 3-dose series)] Future Scheduled 2021-11-17 Hepatitis C screening [facility] Test 09:20:56 (procedure) [code = of Medic ine 177131461] Future Scheduled 2021-11-17 Human immunodeficiency B [facility] Test 09:20:56 virus screening of Medicine (procedure) [code = 031168806] Future Scheduled 2021-11-17 Screening for malignant [facility] Test 09:20:56 neoplasm of cervix of Medici ne (procedure) [code = 007907078] Future Scheduled 2021-11-17 Diabetic foot [facility] Test 09:20:56 examination of Medicine (regime/therapy) [code = 561323072] Future Scheduled 2021-11-17 TETANUS SHOT (ADULT) [facility] Test 09:20:56 [code = TETANUS SHOT of Medi cine (ADULT)] Future Scheduled 2021-10-18 DEPRESSION SCREENING [facility] Test 00:00:00 (12+) [code = [facility] DEPRESSION SCREENING (12+)] Future Scheduled 2021-08-25 COVID-19 Vaccine (1) [facility] Test 13:38:16 [code = COVID-19 of Medicine Vaccine (1)] Future Scheduled 2021-08-25 HPV VACCINE (2 - 3-dose [facility] Test 13:38:16 series) [code = HPV of Medic ine VACCINE (2 - 3-dose series)] Future Scheduled 2021-08-25 Hepatitis C screening [facility] Test 13:38:16 (procedure) [code = of Medic ine 052946801] Future Scheduled 2021-08-25 Human immunodeficiency B [facility] Test 13:38:16 virus screening of Medicine (procedure) [code = 372951818] Future Scheduled 2021-08-25 Screening for malignant [facility] Test 13:38:16 neoplasm of cervix of Medici ne (procedure) [code = 745091522] Future Scheduled 2021-08-25 Diabetic foot [facility] Test 13:38:16 examination of Medicine (regime/therapy) [code = 475639425] Future Scheduled 2021-08-25 ANNUAL DIABETIC [facility] Test 13:38:16 RETINOPATHY SCREENING of Med icine [code = ANNUAL DIABETIC RETINOPATHY SCREENING] Future Scheduled 2021-08-25 Hemoglobin A1c [facility] Test 13:38:16 measurement (procedure) of M edicine [code = 58014360] Future Scheduled 2021-08-25 TETANUS SHOT (ADULT) [facility] Test 13:38:16 [code = TETANUS SHOT of Medi cine (ADULT)] Future Scheduled 2021-08-25 TSH [code = 15332-1] Ordered: [facility] Test 11:55:26 08/25/2021 of Medicine Future Scheduled 2021-08-25 T4 FREE [code = 3024-7] Ordered: [facility] Test 11:55:26 08/25/2021 of Medicine Future Scheduled 2021-08-25 COMPREHENSIVE METABOLIC Ordered: [facility] Test 11:55:26 PANEL [code = 51052-1] 08/25/2021 of Me dicine Future Scheduled 2021-06-18 INFLUENZA VACCINE (#1) [facility] Test 00:00:00 [code = INFLUENZA Medical Ce nter VACCINE (#1)] Future Scheduled 2019 Screening for malignant [facility] Test 00:00:00 neoplasm of cervix Medical C enter (procedure) [code = 782111148] Future Scheduled 2016 HEPATITIS C [facility]CRE[facility] Test 00:00:00 [code = HEPATITIS C Medical Center SCREENING] Future Scheduled 2003 COVID-19 VACCINE (1) [facility] Test 00:00:00 [code = COVID-[address] VACCINE (1)] Future Scheduled TETANUS SHOT (ADULT) [employer] Test [code = TETANUS SHOT of Medi cine (ADULT)] Future Scheduled HIV SCREENING [code = [employer] [facility] HIV SCREENING] of Medicine Future Scheduled FLU VACCINE > 6 MONTHS [employer] Test [code = FLU VACCINE > 6 of M edicine MONTHS] Future Scheduled IRIS EXAM [code = Ordered: [facility] Test 42635] 09/17/2020 of Medicine Future Scheduled A1C TESTING EVERY 6 [employer] Test MONTHS [code = A1C of Medici ne TESTING EVERY 6 MONTHS] Future Scheduled HPV VACCINE (2 - 3-dose [facility] Test series) [code = HPV of Medic ine VACCINE (2 - 3-dose series)] Future Scheduled ANNUAL DIABETIC [facility] Test RETINOPATHY SCREENING of Med icine [code = ANNUAL DIABETIC RETINOPATHY SCREENING] Future Scheduled HEPATITIS C SCREENING [employer] Test [code = HEPATITIS C of Medic ine SCREENING] Future Scheduled HIV SCREENING [code = [employer] [facility] HIV SCREENING] of Medicine Future Scheduled CERVICAL CANCER [facility] Test SCREENING 3 YEAR FOLLOW of M edicine UP [code = CERVICAL CANCER SCREENING 3 YEAR FOLLOW UP] Future Scheduled FLU VACCINE > 6 MONTHS [employer] Test [code = FLU VACCINE > 6 of M edicine MONTHS] Future Scheduled Diabetic foot [facility] Test examination of Medicine (regime/therapy) [code = 228383514] Future Scheduled TETANUS SHOT (ADULT) [employer] Test [code = TETANUS SHOT of Medi cine (ADULT)] Future Scheduled A1C TESTING EVERY 6 [employer] Test MONTHS [code = A1C of Medici ne TESTING EVERY 6 MONTHS] Future Scheduled HPV VACCINE (2 - 3-dose [facility] Test series) [code = HPV of Medic ine VACCINE (2 - 3-dose series)] Future Scheduled HEPATITIS C SCREENING [employer] Test [code = HEPATITIS C of Medic ine SCREENING] Future Scheduled HIV SCREENING [code = [employer] [facility] HIV SCREENING] of Medicine Future Scheduled CERVICAL CANCER [facility] Test SCREENING 3 YEAR FOLLOW of M edicine UP [code = CERVICAL CANCER SCREENING 3 YEAR FOLLOW UP] Future Scheduled FLU VACCINE > 6 MONTHS [employer] Test [code = FLU VACCINE > 6 of M edicine MONTHS] Future Scheduled Diabetic foot [facility] [employer] [facility] [facility] examination of Medicine (regime/therapy) [code = 902219049] Future Scheduled ANNUAL DIABETIC [facility] Test RETINOPATHY SCREENING of Med icine [code = ANNUAL DIABETIC RETINOPATHY SCREENING] Future Scheduled TETANUS SHOT (ADULT) [employer] Test [code = TETANUS SHOT of Medi cine (ADULT)] Encounters Start End Encounter Admission Attending Care Care Encounter Source Date/Time Date/Time Type Type Clinicians Facility Department ID 2022-01-26 2022-01-26 Office LISY BAHENA [id number] [facility] 10:54:08 13:12:05 Visit DIMPI AMBULATOR 350.1.13.21 College Y 0.2.7.2.686 of [id number] Medi jorge 310 e 2021-12-15 2021-12-15 Office LISY Bahena [id number] [facility] 11:00:00 12:09:32 Visit Dimpi Marcel AMBULATOR 350.1.13.21 College Y 0.2.7.2.686 of [id number] Medi jorge 310 e 2021-11-17 2021-11-17 Outpatient [facility] [id number] [facility] 00:00:00 23:59:00 Viktoriya dickson of Medicin e 2021-11-17 2021-11-17 Office LISY BAHENA [id number] [facility] 09:14:57 13:31:18 Visit DIMPI AMBULATOR 350.1.13.21 College Y 0.2.7.2.686 of [id number] [facility] jorge 310 e 2021-11-17 2021-11-17 Emergency ER EMILIANA, [facility] Emergency [id number] [facility] 10:49:00 [facility]57:00 [facility] 2021-11-17 2021-11-17 Emergency ER Emiliana, [facility] [id number] 10:49:00 12:57:00 [facility] 2021-11-17 2021-11-17 Orders [facility] [id number] 00:00:00 00:00:00 Only [facility] 2021-11-17 2021-11-17 Travel [facility] [id number] [facility] 00:[facility] 00:00:00 [facility] 2021-08-25 2021-08-25 Office LISY BAHENA [id number] [facility] 11:10:21 17:24:58 Visit DIMPI AMBULATOR 350.1.13.21 College Y 0.2.7.2.686 of [id number] [facility] 310 e 2021-05-22 2021-05-22 Outpatient R [facility] [id number] [facility] 08:00:00 08:00:00 [id number] [facility] 2021-05-22 2021-05-22 Outpatient R PUMA [facility] [id number] [facility] 08:00:00 08:00:00 AHMET [facility] 2021-05-22 2021-05-22 Nurse Therapy, Adc Covid Infusion [facility] 1.2.840.114 [id number] [facility] 07:28:22 07:58:22 Visit Ahmet Suero 350.1.13.10 [place] [id number] [facility] [address] Branch 2021-05-22 2021-05-22 Orders Doctor JESSI 1.2.840.114 [id number] [facility] 00:00:00 00:00:00 Only Unassigned, MERLIN 350.1.13.10 ity of [place] [facility] 4.2.7.2.686 Nader as [id number] [facility] 009 Branch 2020-11-19 2020-11-19 Office Pietropaolo BCM 1.2.840.114 [id number] [facility] 15:00:00 15:30:00 Visit , Ignacio AMBULATOR 350.1.13.21 College Y 0.2.7.2.686 of [id number] [facility] 310 e 2020-09-17 2020-09-17 Office Pietropaolo BCM 1.2.840.114 [id number] [facility] 13:52:39 15:43:14 Visit , Ignacio AMBULATOR 350.1.13.21 College Y 0.2.7.2.686 of [id number] [facility] 310 e 2019-11-17 2019-11-17 Office Piet[place]aolo BCM 1.2.840.114 [id number] [facility] 15:34:25 17:40:34 Visit , Ignacio AMBULATOR 350.1.13.21 College Y 0.2.7.2.686 of [id number] [facility] 310 e Results Test Description Test Time Test Comments Results Result Comments Source POCT HEMOGLOBIN A1C 2022-01-26 16:14:00 Test Item Value Reference Range Interpretation Comme nts HEMOGLOBIN A1C (test code = 4548-4) 7.7 % 4.0-5.6 A Lab Interpretation (test code = 79319-4) Abnormal [facility] REAGENT STP/BLD [id number] 16:07:00 Test Item Value Reference Range Interpretation Comments BLOOD GLUCOSE, FASTING (test code = 1558-6) [facility] REAGENT STP/BLD [id number] 17:37:00 Test Item Value Reference Range Interpretation Comments BLOOD GLUCOSE, FASTING (test code = 1558-6) [facility] HEMOGLOBIN [id number] 15:35:00 Test Item Value Reference Range Interpretation Comments HEMOGLOBIN A1C (test code = 4548-4) 7.7 % 4.0-5.6 A Lab Interpretation (test code = Abnormal 22841-1) [facility] [id number] 15:29:00 Test Item Value Reference Range Interpretation Comments KETONES, BLOOD (test code = 2970123) [facility] [id number] 15:28:00 Test Item Value Reference Range Interpretation Comments BLOOD GLUCOSE, FASTING (test code = 1558-6) [facility], [id number] 12:47:06 Test Item Value Reference Range Interpretation Comments Preg Test, Ur (test code = 2112-1) Negative [facility] [id number] 12:47:06 Test Item Value Reference Range Interpretation Comments TEST URINE (BEAKER) (test Negative code = 583) Urinalysis w/Microscopic + Reflex to [id number] 12:44:38 Test Item Value Reference Range Interpretation Comments Color, UA (test code = Yellow 5778-6) Clarity, UA (test code = Clear 5767-9) Specific [place], UA 1.015 1.005-1.030 (test code = 5811-5) pH, UA (test code = 6.0 5.0-9.0 5803-2) Protein, UA (test code = Negative Negative 35197-2) Glucose, UA (test code = Negative Negative 365) Ketones, UA (test code = Trace Negative A 2514-8) Bilirubin, UA (test code Negative Negative = 53142-8) Blood, UA (test code = Negative Negative 96613-3) Nitrite, UA (test code = Negative Negative 5802-4) Leukocytes, UA (test Negative Negative code = 5799-2) Urobilinogen, UA (test 0.2 mg/dL 0.2-1.0 code = 27508-3) Bacteria, UA (test code Moderate = 19017-7) RBC, UA (test code = <5 See_Comment [Autom ated message] 799-7) The system whic h generated this result transmit jose a reference range : /HPF. The refer ence range was not u sed to interpret th is result as normal/abnormal . WBC, UA (test code = <5 See_Comment [Autom ated message] 21908-4) The system whic h generated this result transmit jose a reference range : /HPF. The refer ence range was not u sed to interpret th is result as normal/abnormal . SQUAMOUS EPITHELIAL <5 See_Comment [Automa jose a message] (test code = 01497-0) The sy stem which generated this result transmit jose a reference range : /HPF. The refer ence range was not u sed to interpret th is result as normal/abnormal . Specimen Source (test code = 2795) Lab Interpretation (test Abnormal code = 12751-6) [facility] [id number] 12:44:38 Test Item Value Reference Range Interpretation [...] 1663) SOURCE(BEAKER) (test code = 2795) T4, [id number] 12:41:55 Test Item Value Reference Range Interpretation Comments Free T4 (test code = 3024-7) 1.63 ng/dL 0.70-1.48 H Lab Interpretation (test code = Abnormal 22688-5) [facility] [id number] 12:41:55 Test Item Value Reference Range Interpretation Comments FREE T4 (BEAKER) (test code = 655) 1.63 ng/dL 0.70-1.48 H TSH/Free T4 If [id number] 12:00:37 Test Item Value Reference Range Interpretation Comments TSH (test code = 0.173 See_Comment L [Automated message] 44784-5) The system [employer] generated this result transmitted ref erence range: 0.350 - 5.500 uIU/mL. The ref erence range was not u sed to interpret this result as normal/abnor mal. Lab Interpretation (test Abnormal code = 94363-1) [facility] T4 IF [id number] 12:00:37 Test Item Value Reference Range Interpretation Comments THYROID STIMULATING HORMONE 0.173 uIU/mL 0.350-5.500 L (BEAKER) (test code = 772) Comprehensive metabolic [id number] 11:45:08 Test Item Value Reference Range Interpretation [...] = 4.6 g/dL 3.5-5.0 Specime n slightly 54168-9) hemolyzed Alkaline Phosphatase 67 U/L 40-150 (test code = 6768-6) Total Bilirubin (test 1.8 mg/dL 0.2-1.2 H Specim en slightly code = 1974-2) hemolyzed Sodium (test code = 136 meq/L 427-180 2979-2) Potassium (test code 3.9 meq/L 3.5-5.1 Specime n slightly = 6423-3) hemolyzed Chloride (test code = 102 meq/L 98-107 2074-0) CO2 (test code = 29 meq/L 22-29 2027-) BUN (test code = 11 mg/dL 7-21 3094-0) Creatinine (test code 0.96 mg/dL 0.57-1.25 Specim en slightly = 2160-0) hemolyzed Glucose (test code = 191 mg/dL 70-105 H 2345-7) Calcium (test code = 10.0 mg/dL 8.4-10.2 49980-9) AST (test code = 20 U/L 5-34 Specimen sl ightly 1920-8) hemolyzed ALT (test code = 13 U/L 6-55 Specimen sl ightly 1742-6) hemolyzed EGFR (test code = 73 mL/min/1.73 [place] [address]-9) NOT ACCURATE CREATININE CLEARANCE IN PREDICTING GLOMERULAR FILTRATION RATE . ESTIMATED GFR I S NOT APPLICABLE FOR DIALYSIS PATIEN TS. KELLY (test code = KELLY) Specimen slightly icteric Lab Interpretation Abnormal (test code = 87183-5) [facility] [id number] 11:45:08 Test Item Value Reference Range Interpretation [...] = 382) CO2 (BEAKER) (test 29 meq/L - code = 355) BLOOD UREA NITROGEN 11 [...] FOR DIALYSIS PATIEN TS. Specimen slightly ictericKetones, [id number] 11:40:37 Test Item Value Reference Range Interpretation Comments Ketones, Blood (test code = 1103) 0.8 mmol/L <0.4 H Lab Interpretation (test code = Abnormal 65935-7) [facility], [id number] 11:40:37 Test Item Value Reference Range Interpretation Comments KETONES, BLOOD (BEAKER) (test code 0.8 mmol/L <0.4 H = 1103) CBC with platelet count + automated [id number] 11:27:08 Test Item Value Reference Range Interpretation Comments WBC (test code = 6690-2) 5.9 See_Comment [A utomated message] The system [employer] generated this result transmitted ref erence range: 3.5 - 10 .5 K/L. The refe rence range was not u sed to interpret this result as normal/abnor mal. RBC (test code = 789-8) 4.91 See_Comment [Au tomated message] The system [employer] generated this result transmitted ref erence range: 3.93 - 5 .22 M/L. The refe rence range was not u sed to interpret this result as normal/abnor mal. MCHC (test code = 786-4) 33.9 See_Comment [A utomated message] The system [employer] generated this result transmitted ref erence range: [...] See_Comment [Aut omated message] 777-3) The system [employer] generated this result transmitted ref erence range: 150 - 45 0 K/CU MM. The referen ce range was not u sed to interpret this result as normal/abnor mal. MPV (test code = 9.7 fL 9.0-12.3 56785-2) % Neutros (test code = 57 % 429) % Lymphs (test code = 30 % 430) % Monos (test code = 13 % 431) % Eos (test code = 432) 1 % % Baso (test code = 437) 0 % # Neutros (test code = 3.35 See_Comment [Aut omated message] 670) The system [employer] generated this result transmitted ref erence range: 1.56 - 6 .13 K/L. The refe rence range was not u sed to interpret this result as normal/abnor mal. # Lymphs (test code = 1.75 See_Comment [Auto mated message] 414) The system [employer] generated this result transmitted ref erence range: 1.18 - 3 .74 K/L. The refe rence range was not u sed to interpret this result as normal/abnor mal. # Monos (test code = 0.74 See_Comment H [Autom ated message] 415) The system [employer] generated this result transmitted ref erence range: 0.24 - 0 .36 K/L. The refe rence range was not u sed to interpret this result as normal/abnor mal. # Eos (test code = 416) 0.05 See_Comment [Au tomated message] The system [employer] generated this result transmitted ref erence range: 0.04 - 0 .36 K/L. The refe rence range was not u sed to interpret this result as normal/abnor mal. # Baso (test code = 417) 0.02 See_Comment [A utomated message] The system [employer] generated this result transmitted ref erence range: 0.01 - 0 .08 K/L. The refe rence range was not u sed to interpret this result as normal/abnor mal. Immature 0 % 0-1 Granulocytes-Relative (test code = 2801) Lab Interpretation (test Abnormal code = 19947-7) [facility] W/PLT COUNT & AUTO [id number] 11:27:08 Test Item Value Reference Range Interpretation [...] (BEAKER) (test code = 2801) Blood gas, [id number] 11:14:32 Test Item Value Reference Range Interpretation Comments pH, Timmy (test code = 7.39 7.32-7.42 2746-6) pCO2, Timmy (test code = 50 See_Comment [Aut omated message] 755) The system [employer] generated this result transmit jose a reference range : 41 - 51 mm Hg. The reference range was not used to interpret this result as normal/abnormal . pO2, Timmy (test code = <25 See_Comment L [Auto mated message] 6675-2) The system [employer] generated this result transmit jose a reference range : 25 - 40 mm Hg. The reference range was not used to interpret this result as normal/abnormal . O2 Sat, Timmy (test code 40.1 % 40.0-70.0 = 2711-0) HCO3, Timmy (test code = 30 mmol/L 21-29 H 52178-1) Base Excess, Timmy (test 3.3 mmol/L -2.0-3.0 H code = 1927-3) Patient Temperature 36.9 (test code = 8310-5) FIO2 (test code = 1819) 21 Lab Interpretation Abnormal (test code = 05789-0) [id number]:14:32 Test Item Value Reference Range Interpretation [...] (test code = 1819) 21.0 POCT HEMOGLOBIN [id number] 17:28:00 Test Item Value Reference Range Interpretation Comments HEMOGLOBIN A1C (test code = 4548-4) 8.1 % 4.0-5.6 A Lab Interpretation (test code = Abnormal 36783-9) [facility] [id number] 17:21:00 Test Item Value Reference Range Interpretation Comments BLOOD GLUCOSE, FASTING (test code = 1558-6) [facility]
[2022-03-26] MEDS ORDERED: NA CHLORIDE 0.9% 1,000 ML ONE (06:51)
[2022-03-26] MEDS ORDERED: INSULIN -REGULAR HUMAN 50 UNIT/0.5 ML ML ONE (06:51)
[2022-03-26 07:09] LABS: Potassium 5.6 mmol/L (3.5-5.1)
[2022-03-26] MEDS ORDERED: Ringers Lactate 1,000 ML IV ONE (08:20)
--- NOTE | 2022-03-26 09:53 | EDPHYS ---
Physician Documentation [facility] Name: Amy Andrew Age: 21 yrs Sex: Female : 2000 Arrival Date: 03/26/2022 Time: 06:29 Bed 19 Private MD: ED Physician Jadiel Hernandez HPI: 03/26 06:48 This 21 yrs old Female presents to ER via Unassigned with complaints of high glucose. rn 06:48 Onset: The symptoms/episode began/occurred just prior to arrival. Associated signs and rn symptoms: Pertinent positives: dizziness, fatigue. Current symptoms: In the emergency department the patient's symptoms are unchanged from the initial presentation. The patient has experienced similar episodes in the past. The patient has been recently seen at the [facility] Emergency Department. Pt was just seen here last night for hyperglycemia, was not in DKA, given fluids and insulin, felt better, refused second dose of insulin at that time and opted to go home. Returns because ate something when she went home and glucose climbed > 500. Reports feels foggy and didn't give herself any additional insulin because she didn't trust herself to measure it out. EMS did not administer insulin or fluids. . Historical: - Allergies: 06:58 No Known Allergies; bb - Home Meds: 06:58 Doxycycline Oral [Active]; Insulin pump [Active]; levothyroxine 150 mcg tab 1 tab once bb daily [Active]; Novolog Flexpen 100 unit/mL subcutaneous inpn [Active]; - PMHx: 06:58 Diabetes - IDDM; Hypothyroidism; bb - Social history:: Smoking status: Patient denies any tobacco usage or history of. - Family history:: not pertinent. - Hospitalizations: : No recent hospitalization is reported. ROS: 06:51 Constitutional: Negative for fever, chills, and weight loss, Eyes: Negative for injury, rn pain, redness, and discharge, ENT: Negative for injury, pain, and discharge, Neck: Negative for injury, pain, and swelling, Cardiovascular: Negative for chest pain, palpitations, and edema, Respiratory: Negative for shortness of breath, cough, wheezing, and pleuritic chest pain, Abdomen/GI: Negative for abdominal pain, nausea, vomiting, diarrhea, and constipation, Back: Negative for injury and pain, MS/Extremity: Negative for injury and deformity, Skin: Negative for injury, rash, and discoloration, Neuro: + genearlized fatigue and weakness Exam: 06:51 Constitutional: This is a well developed, well nourished patient who is awake, rn somnolent but ambulatory to bathroom and room without assistance. Head/Face: Normocephalic, atraumatic. Eyes: Pupils equal round and reactive to light, extra-ocular motions intact. ENT: MMM Cardiovascular: Tachycardic, regular. No pulse deficits. Respiratory: No increased work of breathing, no retractions or nasal flaring. Abdomen/GI: Soft, non-tender Skin: Warm, dry MS/ Extremity: Pulses equal, no cyanosis. Neuro: GCS 15, oriented to person, place, time, and situation. Cranial nerves II-XII grossly intact. Motor strength 5/5 in all extremities. Sensory grossly intact. Cerebellar exam normal. Normal gait. Vital Signs: 06:30 BP 113 / 78; Pulse 105; Resp 18 S; Temp 98.3(O); Pulse Ox 100% on R/A; bb 08:31 BP 110 / 72; Pulse 101; Resp 18; Pulse Ox 98% ; andrea MDM: 06:29 Patient medically screened. rn 09:51 Differential diagnosis: hyperglycemia. Data reviewed: vital signs, nurses notes. ED jr11 course: Patient's glucose is now 300, patient feels comfortable managing at home, will troubleshoot her pump with [employer], any further issues she will follow-up with primary care or return here for worsening. Patient comfortable with plan of care.. 09:52 ED course: HR 82. jr11 03/26 06:31 Order name: BMP; Complete Time: 07:22 rn 03/26 06:44 Order name: Glucose, Ancillary Testing; Complete Time: 07:02 EDMS 03/26 07:45 Order name: Glucose, Ancillary Testing; Complete Time: 08:05 EDMS 03/26 09:50 Order name: Glucose, Ancillary Testing; Complete Time: 09:51 EDMS 03/26 06:31 Order name: IV Start; Complete Time: 06:56 rn 03/26 06:31 Order name: Glucose Level; Complete Time: 06:34 rn 03/26 06:31 Order name: Cardiac monitoring; Complete Time: 08:11 rn 03/26 06:31 Order name: O2 Sat Monitoring; Complete Time: 06:56 rn 03/26 08:44 Order name: Glucose Level jr11 Administered Medications: 06:52 Drug: NS 0.9% 1000 ml Route: IV; Rate: 1000 ml; Site: right antecubital; 06:52 Drug: Insulin Regular Human 10 units {Co-Signature: vc1 (Fadumo Stewart RN).} Route: bb Sub-Q; Site: left upper arm; 07:11 Follow up: Response: No adverse reaction bb 06:52 Drug: Insulin Regular Human 10 units {Co-Signature: lg3 (Michell Tripathi RN).} Route: IVP; bb Site: right antecubital; 07:11 Follow up: Response: No adverse reaction 08:31 Drug: Lactated Ringers Solution 1000 ml Route: IV; Rate: bolus; Site: right antecubital; Disposition Summary: 03/26/22 09:53 Discharge Ordered Location: Home [facility] Condition: Stable 11 Diagnosis - Hyperglycemia, unspecified 11 Discharge Instructions: - Discharge Summary Sheet 11 - Hyperglycemia [facility] Forms: - Medication Reconciliation Form 11 - Thank You Letter jr11 - Antibiotic Education jr11 - Prescription Opioid Use jr11 Signatures: Dispatcher [employer] Belem Priest RN RN bb Nieto, Roman, MD MD rn Au-Stager, Heather, RN RN ha Rosillo, Jose, MD MD [facility] Fadumo Stewart RN vc1 Michell Tripathi RN lg3
--- NOTE | 2022-03-26 09:53 | ER ---
Nurse's Notes [facility] Name: Amy Andrwe Age: 21 yrs Sex: Female : 2000 Arrival Date: 03/26/2022 Time: 06:29 Bed 19 Private MD: Diagnosis: Hyperglycemia, unspecified Presentation: 03/26 06:30 Chief complaint: EMS states: they were toned out for report of pt with hyperglycemia pt bb here earlier for the same thing meter stated high. Coronavirus screen: At this time, the client does not indicate any symptoms associated with coronavirus-19. Ebola Screen: No symptoms or risks identified at this time. Initial Sepsis Screen: Does the patient meet any 2 criteria? No. Patient's initial sepsis screen is negative. Does the patient have a suspected source of infection? No. Patient's initial sepsis screen is negative. Risk Assessment: Do you want to hurt yourself or someone else? Patient reports no desire to harm self or others. Onset of symptoms was March 26, 2022. 06:30 Method Of Arrival: EMS: [facility] bb 06:30 Acuity: UMU 3 bb Historical: - Allergies: 06:58 No Known Allergies; bb - Home Meds: 06:58 Doxycycline Oral [Active]; Insulin pump [Active]; levothyroxine 150 mcg tab 1 tab once bb daily [Active]; Novolog Flexpen 100 unit/mL subcutaneous inpn [Active]; - PMHx: 06:58 Diabetes - IDDM; Hypothyroidism; bb - Social history:: Smoking status: Patient denies any tobacco usage or history of. - Family history:: not pertinent. - Hospitalizations: : No recent hospitalization is reported. Screenin:59 Abuse screen: Denies threats or abuse. Nutritional screening: No deficits noted. bb Tuberculosis screening: No symptoms or risk factors identified. Fall Risk None identified. Assessment: 06:59 General: Appears in no apparent distress. uncomfortable, Behavior is cooperative, bb listless. Pain: Complains of pain in chest. Neuro: Level of Consciousness is awake, alert, obeys commands, Oriented to person, place, time, situation. Cardiovascular: Capillary refill < 3 seconds Patient's skin is warm and dry. Respiratory: Respiratory effort is even, unlabored, Respiratory pattern is regular. GI: No signs and/or symptoms were reported involving the gastrointestinal system. Derm: Skin is pink, warm \T\ dry. Musculoskeletal: Circulation, motion, and sensation intact. Vital Signs: 06:30 BP 113 / 78; Pulse 105; Resp 18 S; Temp 98.3(O); Pulse Ox 100% on R/A; bb 08:31 BP 110 / 72; Pulse 101; Resp 18; Pulse Ox 98% ; andrea ED Course: 06:29 Patient arrived in ED. rn 06:29 Humberto Rudd MD is Attending Physician. rn 06:30 Arm band placed on Patient placed in an exam room, on a stretcher, on pulse oximetry. bb 06:34 Belem Denney RN is Primary Nurse. bb 06:38 Initial lab(s) drawn, by me, sent to lab. Inserted saline lock: 20 gauge in right bb antecubital area, using aseptic technique. Blood collected. 06:58 Triage completed. bb 06:59 Patient has correct armband on for positive identification. Bed in low position. Call bb light in reach. Side rails up X 1. Warm blanket given. Pillow given. 07:06 Attending Physician role handed off by Humberto Rudd MD jr11 07:06 Jadiel Hernandez MD is Attending Physician. jr11 07:11 Notified ED physician of a critical lab result(s). Glucose 673, Potassium 5.6. lp1 08:32 No provider procedures requiring assistance completed. andrea 10:07 IV discontinued, intact, Pressure dressing applied. andrea Administered Medications: 06:52 Drug: NS 0.9% 1000 ml Route: IV; Rate: 1000 ml; Site: right antecubital; bb 06:52 Drug: Insulin Regular Human 10 units {Co-Signature: vc1 (Fadumo Stewart RN).} Route: bb Sub-Q; Site: left upper arm; 07:11 Follow up: Response: No adverse reaction bb 06:52 Drug: Insulin Regular Human 10 units {Co-Signature: lg3 (Michell Tripathi RN).} Route: IVP; bb Site: right antecubital; 07:11 Follow up: Response: No adverse reaction bb 08:31 Drug: Lactated Ringers Solution 1000 ml Route: IV; Rate: bolus; Site: right antecubital;andrea Medication: 08:32 VIS not applicable for this client. andrea Outcome: 09:53 Discharge ordered by MD. [email or web address] 10:06 Discharged to home ambulatory. andrea 10:06 Condition: good 10:06 Discharge instructions given to patient. 10:07 Patient left the ED. andrea Signatures: Belem Denney RN Humberto Daly MD MD rn Pena, Laura, RN RN lp1 Isha Restrepo RN RN ha Rosillo, Jose, MD MD jr11 Fadumo Stewart RN vc1 Michell Tripathi RN lg3
[2022-03-26 10:20] VITALS: TEMP 98.3
[2022-03-26 10:22] VITALS: BP 110/72; O2SAT 98
== END 2022-03-26 10:07 | disposition home or self-care (01) ==
LOC: ER 06:24
DX: E11.65 Type 2 diabetes mellitus with hyperglycemia (principal); Z79.4 Long term (current) use of insulin; Z96.41 Presence of insulin pump (external) (internal); E03.9 Hypothyroidism, unspecified
CPT/HCPCS: 80048; 36415; 82947 ×3; 96372; 96374; 99284; J1815; J7120; J7030